=== PATIENT | female | born 1955 | race African-American/Black ===

== ENCOUNTER 2018-02-01 11:40 | Emergency (ER) | payer OTHER ==
[2018-02-01 12:03] VITALS: TEMP 97.8; BMI 31.4
--- NOTE | 2018-02-01 12:41 | PDOC ---
History of Present Illness - General Chief Complaint: Back Pain Stated Complaint: BACK PAIN Time Seen by Provider: 02/01/18 12:40 - History of Present Illness Initial Comments: 02/01/18 13:09 The patient is a 63 year old female with a history of HTN, HLD, DM, Bipolar, Anxiety, Chronic Back Pain, Abdominal Hernia who presents for evaluation of back pain. The patient reports lower back pain with radiation down her right leg similar to her normal chronic back pain, but states it has been getting increasingly worse. She states that she takes percocet and flexiril for pain management, however notes that her insurance has not been able to cover her prescription so she has been unable to fill her prescription. She states that she ran out of her meds 4 days ago with worsening symptoms since then. She otherwise denies fevers, chills, SOB, chest pain, nausea, vomiting, abdominal pain, incontinence, weakness, or changes with urination or bowel movements. Past History - Past Medical History Allergies/Adverse Reactions: Allergies Allergy/AdvReac Type Severity Reaction Status Date / Time divalproex sodium AdvReac Mild Verified 02/01/18 12:06 [From [facility]] Home Medications: Ambulatory Orders Cyclobenzaprine HCl [Flexeril -] 10 mg PO HS PRN #30 tablet 05/22/17 Oxycodone HCl/Acetaminophen [Percocet 10-325 mg Tablet] 1 each PO TID PRN #80 tablet MDD 3 05/22/17 Mirtazapine [Remeron -] 45 mg PO DAILY #30 tab 07/20/17 Valacyclovir HCl [Valtrex -] 500 mg PO BID PRN #10 tab 07/26/17 Cholecalciferol (Vitamin D3) [D3-50] 50,000 unit PO WEEKLY #4 capsule 08/24/17 Hydrocortisone 1% Cream [Hytone 1% Cream -] 1 applic TP TID #1 tube 08/24/17 Buspirone HCl [Buspar -] 15 mg PO TID #90 tablet MDD 3 01/18/18 Quetiapine Fumarate [Seroquel -] 25 mg PO HS #30 tablet 01/18/18 Zolpidem Tartrate [Ambien] 10 mg PO HS PRN #15 tablet MDD 1 01/18/18 traZODone HCL [Desyrel -] 100 mg PO HS #60 tablet MDD 2 tabs at night 01/18/18 Acetaminophen [Tylenol -] 1 - 2 mg PO BID #60 tablet 01/26/18 Albuterol 0.083% Nebulizer Lesa [Ventolin 0.083% Nebulizer Soln -] 1 neb NEB Q6H PRN #100 vial 01/30/18 Albuterol Sulfate Inhaler - [Ventolin HFA Inhaler -] 2 inh PO Q6H #1 inh Aspirin [Aspirin EC] 1 tab PO DAILY #30 tablet. 01/30/18 Atorvastatin Ca [Lipitor] 10 mg PO HS #30 tablet 01/30/18 Bisacodyl [Bisacodyl -] 3 tab PO DAILY #90 tablet. 01/30/18 Docusate Sodium [Colace -] 1 cap PO BID PRN #60 cap 01/30/18 Dolutegravir Sodium [Tivicay] 1 tab PO DAILY #30 tablet 01/30/18 Emtricitab/Rilpiviri/Tenof Ala [Odefsey Tablet] 1 tab PO DAILY #30 tablet Gabapentin [Neurontin -] 300 mg PO Q8H #90 tablet 01/30/18 Hydrochlorothiazide [Hctz -] 25 mg PO DAILY #30 tablet 01/30/18 Lisinopril [Zestril] 40 tab PO DAILY #30 tablet 01/30/18 Metformin HCl [Glucophage] 500 mg PO BIDAC #60 tablet 01/30/18 Sublimity-3 Fatty Acids [Sublimity-3] 1,000 mg PO BID #60 capsule 01/30/18 Sitagliptin Phosphate [Januvia] 100 mg PO DAILY #30 tablet 01/30/18 Anemia: No Asthma: Yes Cancer: No Cardiac Disorders: No CVA: No COPD: No CHF: No Dementia: No Diabetes: Yes GI Disorders: No Disorders: No HTN: Yes Hypercholesterolemia: No Liver Disease: Yes (HEPATITIS C fully treated) Psychiatric Problems: Yes (BIPOLAR, ANXIETY.) Seizures: No Thyroid Disease: No - Surgical History Abdominal Surgery: Yes (UMBILICAL HERNIA) Appendectomy: No Cardiac Surgery: No Cholecystectomy: No Lung Surgery: No Neurologic Surgery: No Orthopedic Surgery: Yes (lumbar decompression 2013) - Suicide/Smoking/Psychosocial Hx Smoking History: Never smoked Have you smoked in the past 12 months: No Number of Cigarettes Smoked Daily: 6 If you are a former smoker, when did you quit?: Approximately 10 days ago. Cigars Per Day: 0 Information on smoking cessation initiated: No 'Breaking Loose' booklet given: 02/26/14 Hx Alcohol Use: No Drug/Substance Use Hx: No Substance Use Type: Alcohol, Marijuana Hx Substance Use Treatment: Yes (rehab) Review of Systems - Review of Systems Comments:: 02/01/18 13:35 Constitutional: No fevers, chills, fatigue, malaise HEENT: No Rhinorrhea, nasal congestion, visual changes Cardiovascular: No chest pain, syncope, palpitations, lightheadedness Respiratory: No Cough, SOB, Hemoptysis, Gastrointestinal: No Abdominal pain, Nausea, Vomiting, Constipation, Diarrhea, Melena Genitourinary: No Dysuria, Frequency, Urgency, Hesitancy, Hematuria, Flank pain Musculoskeletal: Back pain. Skin: No rashes, itching, bruising, pallor Neurologic: No Headache, Dizziness, Numbness, Weakness, or Tingling Psychiatric: No Hallucinations. No SI or HI *Physical Exam - Vital Signs Last Vital Signs Temp Pulse Resp BP Pulse Ox 97.8 F 100 H 16 157/110 H 100 02/01/18 11:44 02/01/18 11:44 02/01/18 11:44 02/01/18 11:44 02/01/18 11:44 - Physical Exam Comments: 02/01/18 13:36 General Appearance: Nourished. No Apparent Distress HEENT: No Pharyngeal Erythema, Tonsillar Exudate, Tonsillar Erythema Neck: No Cervical Lymphadenopathy Respiratory/Chest: Lungs Clear, Normal Breath Sounds. No Crackles, Rales, Rhonchi, Wheezing Cardiovascular: Regular Rhythm, Regular Rate. No Murmur, Gallops, Rubs Gastrointestinal/Abdominal: Normal Bowel Sounds, Soft. Large reducible abdominal hernia noted. No Guarding, Rebound, Tenderness Musculoskeletal: Paraspinal tenderness to palpation. No CVA Tenderness Extremity: Normal Capillary Refill Integumentary: Normal Color, Dry, Warm Neurologic: Fully Oriented, Alert, Normal Mood/Affect, Normal Response, 5/5 strength bilaterally Medical Decision Making - Medical Decision Making 02/01/18 13:38 The patient is a 63 year old female with a history of HTN, HLD, DM, Bipolar, Anxiety, Chronic Back Pain, Abdominal Hernia who presents for evaluation of back pain. Given the patient's history and physical exam, it is likely the patient's symptoms are an exacerbation of her chronic back pain. She has no red flag signs on history or physical. We will treat the patient with lidocaine patch, robaxin, toradol and 1 percocet. We will continue to monitor and reassess while here in the ED. 02/01/18 14:57 Patient reports improvement in her symptoms. The patient talked to her home social work and has arranged for her home medication. We are comfortable discharging the patient home with primary care provider follow up. We discussed the plan and return precautions with the patient who voiced understanding and is agreeable with the plan. *DC/Admit/Observation/Transfer Diagnosis at time of Disposition: Lower back pain Qualifiers: Chronicity: acute Back pain laterality: unspecified Sciatica presence: with sciatica Sciatica laterality: sciatica of right side Qualified Code(s): M54.41 - Lumbago with sciatica, right side - Discharge Dispostion Disposition: HOME Condition at time of disposition: Stable Decision to Admit order: No - Referrals Referrals: [facility] [Primary Care Provider] - - Patient Instructions Printed Discharge Instructions: DI for Low Back Pain Additional Instructions: Please return to the ER if you experience concerning or worsening symptoms including worsening difficulty breathing, weakness, or chest pain. ]Please call to schedule a follow up appointment with your pain management within 2-3 days to discuss your ER visit and further management of your symptoms. - Post Discharge Activity
--- NOTE | 2018-02-01 12:47 | PDOC ---
Attending Attestation - HPI HPI: 02/01/18 14:03 Patient is a 63 year old female with a significant past medical history of HTN, HLD, DM, Bipolar, Anxiety, Chronic Back Pain, Abdominal Hernia ,who presents to the ED with complaints of back pain that began earlier today. Patient reports experiencing lower back pain that she states radiates down her right leg that she states has gradually increased over time, prompting her to come into the ED for further evaluation. She reports getting lumbar surgery and was prescribed percocet by her doctor and was told it would be available at her pharmacy on the 25 of january. Patient reports contacting her pharmacy and was told it could not be filled due to her insurance. She reports taking no other medication for her pain. Denies chest pain, Sob. Denies trauma to affected areas. Denies nausea, vomiting , Denies contact with sick individuals, out of state travelling. Denies any other symptoms. Allergies: Divalproex sodium. Social history: No smoking. No alcohol. No illicit drugs. Surgical history: Umbilical hernia, Lumbar decompression 2013 PMD: Dr. Reilly - Physicial Exam PE: 02/01/18 14:03 Vitals: Triage Vital signs reviewed General Appearance: no acute distress, well nourished well developed Head: Atraumatic Eyes: Pupils equal reactive round, extraocular movement intact Ears: TMs normal bilaterally Nose: Nares patent bilaterally; no nasal congestion Throat: Posterior oropharynx without erythema, mucous membranes moist Neck: Supple; No Nuchal rigidity Chest Wall: Nontender Cardiac: Regular rate and rhythm, no murmurs, no rubs, no gallops Lungs: Clear to auscultation bilateral, good air movement bilaterally Abdomen: Soft, non distended, normal bowel sounds, non tender to palpation Genitourinary: Rectal: Exam deferred Extremities: +Slight pain to lower back with straight leg raise. Full range of motion to all extremities, no cyanosis, clubbing, or edema Skin: Warm and dry, no rashes or lesions, no rash, no petechiae Neuro: AOX3; Cranial Nerves 2-12 grossly intact, Strength intact to all extremities, Sensation intact to all extremities, gait normal Psych: Normal mood, normal affect <Dayo Gil - Last Filed: 02/01/18 14:03> - Resident Resident Name: Shawn Sanchez - ED Attending Attestation I have performed the following: I have examined & evaluated the patient, The case was reviewed & discussed with the resident, I agree w/resident's findings & plan, Exceptions are as noted - Medical Decision Making 02/01/18 16:03 63 years old with chronic sciatica unable to fill her pain management pain medication secondary to insurance issues Here in the emergency department her pain is treated with 1 Percocet lidocaine patch as well as Toradol Her pain is currently improved. She has been in touch with her social media strategist and is in the process of remedying her insurance situation She'll follow-up with her pain management doctor this week. Findings, the need for follow-up and strict return instructions discussed patient. <Maxi Grover - Last Filed: 02/01/18 16:03>
[2018-02-01] MEDS ORDERED: KETOROLAC TROMETHAMINE 60 MG/2 ML VIAL IM ONE (12:48)
[2018-02-01] MEDS ORDERED: LIDOCAINE 5% TOPICAL PATCH TP ONE (12:48)
[2018-02-01] MEDS ORDERED: METHOCARBAMOL 500 MG TABLET PO ONE (12:54)
[2018-02-01] MEDS ORDERED: KETOROLAC TROMETHAMINE 60 MG/2 ML VIAL ONE (12:55)
[2018-02-01] MEDS ORDERED: METHOCARBAMOL 500 MG TABLET ONE (12:55)
[2018-02-01] MEDS ORDERED: LIDOCAINE 5% TOPICAL PATCH ONE (12:55)
[2018-02-01 16:42] VITALS: BP 135/71; PULSE 82
== END 2018-02-01 15:06 | disposition home or self-care (01) ==
LOC: JER 11:40
PROC: 3E0233Z Introduction of Anti-inflammatory into Muscle, Percutaneous Approach (ICD-10-PCS; principal; 2018-02-01)
DX: M54.41 Lumbago with sciatica, right side (principal); I10 Essential (primary) hypertension; E78.00 Pure hypercholesterolemia, unspecified; E11.9 Type 2 diabetes mellitus without complications; Z79.84 Long term (current) use of oral hypoglycemic drugs; F31.9 Bipolar disorder, unspecified; F41.9 Anxiety disorder, unspecified; Z86.19 Personal history of other infectious and parasitic diseases
CPT/HCPCS: 99282-25

== ENCOUNTER 2018-04-16 14:42 | Emergency (ER) | payer OTHER ==
[2018-04-16 14:58] VITALS: PULSE 110; TEMP 98.3; BMI 32.3
[2018-04-16 15:26] VITALS: BP 163/91
[2018-04-16] MEDS ORDERED: METHOCARBAMOL 500 MG TABLET PO ONE (15:38)
[2018-04-16] MEDS ORDERED: KETOROLAC TROMETHAMINE 60 MG/2 ML VIAL IM ONE (15:38)
[2018-04-16] MEDS ORDERED: LIDOCAINE 5% TOPICAL PATCH TP ONE (15:38)
[2018-04-16] MEDS ORDERED: LIDOCAINE 5% TOPICAL PATCH ONE (15:46)
[2018-04-16] MEDS ORDERED: KETOROLAC TROMETHAMINE 60 MG/2 ML VIAL ONE ×2 (15:46)
--- NOTE | 2018-04-16 15:48 | PDOC ---
History of Present Illness - General Chief Complaint: Back Pain Stated Complaint: LOWER BACK PAIN Time Seen by Provider: 04/16/18 15:15 History Source: Patient Exam Limitations: No Limitations - History of Present Illness Initial Comments: 04/16/18 16:52 Patient is a 63 year female with past medical history of sciatica, lumbar fusion , who presents to ER with low back pain. Patient states she feels like her sciatica is flaring up. She states she's been unable see her pain management doctor is her insurance changed. She states that she was able to find a new pain management doctor will be able to be seen in April however she is having a flare at this time. Denies fevers, chills, trauma, fall, numbness and tingling to the extremities, weakness to the extremities, saddle anesthesia, gait changes, and bladder bowel incontinence. Past History - Travel Traveled outside of the country in the last 30 days: No Close contact w/someone who was outside of country & ill: No - Past Medical History Allergies/Adverse Reactions: Allergies Allergy/AdvReac Type Severity Reaction Status Date / Time divalproex sodium AdvReac Mild Verified 04/16/18 14:52 [From Depakote] Home Medications: Ambulatory Orders Valacyclovir HCl [Valtrex -] 500 mg PO BID PRN #10 tab 07/26/17 Cholecalciferol (Vitamin D3) [D3-50] 50,000 unit PO WEEKLY #4 capsule 08/24/17 Hydrocortisone 1% Cream [Hytone 1% Cream -] 1 applic TP TID #1 tube 08/24/17 Acetaminophen [Tylenol .Extra-Strength -] 1 - 2 mg PO BID #60 tablet 01/26/18 Albuterol 0.083% Nebulizer Lesa [Ventolin 0.083% Nebulizer Soln -] 1 neb NEB Q6H PRN #100 vial 01/30/18 Albuterol Sulfate Inhaler - [Ventolin HFA Inhaler -] 2 inh PO Q6H #1 inh Aspirin [Aspirin EC] 1 tab PO DAILY #30 tablet. 01/30/18 Atorvastatin Ca [Lipitor] 10 mg PO HS #30 tablet 01/30/18 Bisacodyl [Bisacodyl -] 3 tab PO DAILY #90 tablet. 01/30/18 Docusate Sodium [Colace -] 1 cap PO BID PRN #60 cap 01/30/18 Dolutegravir Sodium [Tivicay] 1 tab PO DAILY #30 tablet 01/30/18 Emtricitab/Rilpiviri/Tenof Ala [Odefsey Tablet] 1 tab PO DAILY #30 tablet Gabapentin [Neurontin -] 300 mg PO Q8H #90 tablet 01/30/18 Hydrochlorothiazide [Hctz -] 25 mg PO DAILY #30 tablet 01/30/18 Lisinopril [Zestril] 40 tab PO DAILY #30 tablet 01/30/18 Metformin HCl [Glucophage] 500 mg PO BIDAC #60 tablet 01/30/18 Sitagliptin Phosphate [Januvia] 100 mg PO DAILY #30 tablet 01/30/18 Buspirone HCl [Buspar -] 15 mg PO TID #90 tablet 03/22/18 Cyclobenzaprine HCl [Flexeril -] 10 mg PO HS PRN #30 tablet 03/22/18 Mirtazapine [Remeron -] 15 mg PO DAILY #30 tablet 03/22/18 Quetiapine Fumarate [Seroquel -] 25 mg PO HS #30 tablet 03/22/18 Zolpidem Tartrate [Ambien] 10 mg PO HS PRN #15 tablet MDD 1 03/22/18 traZODone HCL [Desyrel -] 100 mg PO HS #60 tablet MDD 2 tabs at night 03/22/18 Diclofenac Potassium 1 tab PO BID PRN #20 tablet MDD 2 03/26/18 Mag Hydrox/Aluminum Hyd/Simeth [Maalox Advanced Suspension] 2 tsp PO BID PRN #1 bottle MDD 4 03/26/18 Methocarbamol [Robaxin -] 500 mg PO BID #14 tablet 04/16/18 Methylprednisolone [Medrol Dose [place]] 4 mg PO ASDIR #21 tablet 04/16/18 Oxycodone HCl/Acetaminophen [Percocet 5-325 mg Tablet] 1 tab PO Q6H #10 tablet MDD 4 04/16/18 Anemia: No Asthma: Yes Cancer: No Cardiac Disorders: No CVA: No COPD: No CHF: No Dementia: No Diabetes: Yes GI Disorders: No Disorders: No HTN: Yes Hypercholesterolemia: No Liver Disease: Yes (HEPATITIS C fully treated) Psychiatric Problems: Yes (BIPOLAR, ANXIETY.) Seizures: No Thyroid Disease: No - Surgical History Abdominal Surgery: Yes (UMBILICAL HERNIA) Appendectomy: No Cardiac Surgery: No Cholecystectomy: No Lung Surgery: No Neurologic Surgery: No Orthopedic Surgery: Yes (lumbar decompression 2013) - Suicide/Smoking/Psychosocial Hx Smoking History: Current every day smoker Have you smoked in the past 12 months: No Number of Cigarettes Smoked Daily: 6 If you are a former smoker, when did you quit?: Approximately 10 days ago. Cigars Per Day: 0 Information on smoking cessation initiated: No 'Breaking Loose' booklet given: 02/26/14 Hx Alcohol Use: No Drug/Substance Use Hx: No Substance Use Type: Alcohol, Marijuana Hx Substance Use Treatment: Yes (rehab) Review of Systems - Review of Systems Able to Perform ROS?: Yes Comments:: 04/16/18 15:48 CONSTITUTIONAL: Absent: fever, chills, diaphoresis, generalized weakness, malaise, loss of appetite GASTROINTESTINAL: Absent: abdominal pain, abdominal distension, nausea, vomiting, diarrhea, constipation, melena, hematochezia GENITOURINARY: Absent: dysuria, frequency, urgency, hesitancy, hematuria, flank pain, genital pain MUSCULOSKELETAL: Present: low back pain radiating to the leg Absent: arthralgia, joint swelling SKIN: Absent: rash, itching, pallor NEUROLOGIC: Absent: headache, focal weakness or paresthesias, dizziness, unsteady gait, seizure, mental status changes, bladder or bowel incontinence PSYCHIATRIC: Absent: anxiety, depression, suicidal or homicidal ideation, hallucinations. Is the patient limited Azeri proficient: No *Physical Exam - Vital Signs Last Vital Signs Temp Pulse Resp BP Pulse Ox 98.3 F 110 H 20 163/91 99 04/16/18 14:57 04/16/18 14:57 04/16/18 14:57 04/16/18 14:57 04/16/18 14:57 - Physical Exam Comments: 04/16/18 15:54 GENERAL: Well developed, well nourished. Awake and alert. No acute distress. MUSCULOSKELETAL TTP of the L paraspinous muscles, L3-L5, with palpable knot consistent with muscle spasm. Positive straight leg raise testing on the left. Normal range of motion at all joints. No bony deformities or tenderness. No midline tenderness. No CVA tenderness. EXTREMITIES: No cyanosis. No clubbing. No edema. No calf tenderness. SKIN: Warm and dry. Normal capillary refill. No rashes. No jaundice. NEUROLOGICAL: Alert, awake, appropriate. Cranial nerves 2-12 intact. No deficits to light touch and temperature in face, upper extremities and lower extremities. No motor deficits in the in face, upper extremities and lower extremities. Normoreflexic in the upper and lower extremities. Normal speech. Toes are down- going bilaterally. Gait is normal without ataxia. PSYCHIATRIC: Cooperative. Good eye contact. Appropriate mood and affect. Moderate Sedation - Procedure Monitoring Vital Signs: Procedure Monitoring Vital Signs Temperature 98.3 F 04/16/18 14:57 Pulse Rate 110 H 04/16/18 14:57 Respiratory Rate 20 04/16/18 14:57 Blood Pressure 163/91 04/16/18 14:57 O2 Sat by Pulse Oximetry (%) 99 04/16/18 14:57 Medical Decision Making - Medical Decision Making 04/16/18 15:55 Pt presents to the ED with a flare of her chronic back pain, no recent trauma -Pt with TTP of the L paraspinous muscles, L3-L5, with palpable knot consistent with muscle spasm. Positive straight leg raise testing on the left. -No trauma, or fever. No saddle anesthesia or bladder/bowel incontinence. No CVA tenderness. -Pt is neurologically intact on exam with no focal findings. -Toradol given with relief of symptoms -DC home. Ortho follow up given for if symptoms do not resolve. -I discussed the physical exam findings, ancillary test results and final diagnoses with the patient. I answered all of the patient's questions. The patient was satisfied with the care received and felt comfortable with the discharge plan and treatment plan. The Patient agrees to follow up with the primary care physician/specialist within 24-72 hours. Return precautions were given. *DC/Admit/Observation/Transfer Diagnosis at time of Disposition: Lower back pain Qualifiers: Chronicity: acute Back pain laterality: left Sciatica presence: with sciatica Sciatica laterality: sciatica of left side Qualified Code(s): M54.42 - Lumbago with sciatica, left side - Discharge Dispostion Disposition: HOME Condition at time of disposition: Stable Decision to Admit order: No - Prescriptions Prescriptions: Methocarbamol [Robaxin -] 500 mg PO BID #14 tablet Methylprednisolone [Medrol Dose [place]] 4 mg PO ASDIR #21 tablet Oxycodone HCl/Acetaminophen [Percocet 5-325 mg Tablet] 1 tab PO Q6H #10 tablet MDD 4 - Referrals Referrals: Nicolle Reilly NP [Primary Care Provider] - Se Bryson MD [Staff Physician] - - Patient Instructions Printed Discharge Instructions: DI for Low Back Pain Additional Instructions: You have low back pain due to a muscle spasm. Please take ibuprofen 800 mg 3 times a day not to exceed 3000 mg a day. You were also prescribed Robaxin. Please take this medication twice a day. Do not drive after taking this medication as it may make you sleepy. You may use warm compresses on your back to help with her symptoms. Please follow-up with your primary care doctor. If your symptoms do not resolve in 3-5 days, follow-up with orthopedics. A referral has been provided for you. Return to the emergency department if you have worsening back pain, bladder or bowel incontinence, numbness and tingling in her legs, changes in the way you walk, or any new or worsening symptoms. - Post Discharge Activity
[2018-04-16] MEDS ORDERED: METHOCARBAMOL 500 MG TABLET ONE (15:49)
[2018-04-16] MEDS ORDERED: LIDOCAINE PATCH REMOVAL MC SCH (22:00)
== END 2018-04-16 16:08 | disposition home or self-care (01) ==
LOC: JERFT 14:42
PROC: 3E0233Z Introduction of Anti-inflammatory into Muscle, Percutaneous Approach (ICD-10-PCS; principal; 2018-04-16)
DX: M54.42 Lumbago with sciatica, left side (principal); M62.830 Muscle spasm of back; I10 Essential (primary) hypertension; E11.9 Type 2 diabetes mellitus without complications; Z79.84 Long term (current) use of oral hypoglycemic drugs; F31.9 Bipolar disorder, unspecified; F41.9 Anxiety disorder, unspecified; Z86.19 Personal history of other infectious and parasitic diseases
CPT/HCPCS: 96372; 99281-25

== ENCOUNTER → 2018-11-20 | Outpatient (CLI) | payer OTHER | LOC: YHH 14:27 ==

== ENCOUNTER 2020-09-17 00:41 | Inpatient (IN) | payer OTHER ==
[2020-09-17] MEDS ORDERED: PROPOFOL 1,000,000 MCG/100 ML VIAL IVPB SCH ×2 (01:00→02:00)
[2020-09-17 01:08] LABS: BASO % 0.9 % (0-2.0); EOS % 2.8 % (0-4.5); HEMATOCRIT 38.5 % (32.4-45.2); HEMOGLOBIN 11.7 GM/dL (10.7-15.3); MCH 23.9 pg (25.7-33.7); MCHC 30.5 g/dl (32.0-36.0); MEAN CELL VOLUME 78.5 fl (80-96); MEAN PLT VOLUME 8.8 fl (7.5-11.1); MONO % 5.7 % (3.8-10.2); NEUT % 42.6 % (42.8-82.8); PLATELET COUNT 305 10^3/uL (134-434)
[2020-09-17 01:16] LABS: ACTIVATED PTT 18.6 SECONDS (25.2-36.5); INR 0.87 (0.83-1.09); PROTHROMBIN TIME (PATIENT) 10.6 SEC (9.7-13.0)
[2020-09-17 01:27] LABS: CALCIUM 8.4 mg/dL (8.5-10.1)
[2020-09-17 01:28] LABS: ALBUMIN 3.3 g/dl (3.4-5.0); BLOOD UREA NITROGEN 9.3 mg/dL (7-18)
[2020-09-17 01:30] LABS: VENOUS O2 SATURATION 90.1 % (70-80); VENOUS PCO2 62.1 mmHg (38-52); VENOUS PH 7.206 (7.310-7.410)
[2020-09-17 01:31] LABS: CREATININE 1.1 mg/dL (0.55-1.3)
[2020-09-17 01:33] LABS: BILIRUBIN,TOTAL 0.3 mg/dL (0.2-1); TOT PROT 7.2 g/dl (6.4-8.2)
[2020-09-17 01:42] LABS: EPI CELLS 2 /uL (0-25.1); HYALINE CASTS 0 /uL (0-3.1); URINE APPEARANCE CLEAR; URINE BACTERIA 3 /uL (0-1359); URINE BILIRUBIN NEGATIVE (NEGATIVE); URINE COLOR YELLOW; URINE GLUCOSE (UA) NEGATIVE (NEGATIVE); URINE KETONE NEGATIVE (NEGATIVE); URINE LEUK ESTERASE NEGATIVE (NEGATIVE); URINE NITRITE NEGATIVE (NEGATIVE); URINE PROTEIN 2+ (NEGATIVE); URINE RBC 4 /uL (0-23.9); URINE UROBILINOGEN 0.2 mg/dL (0.2-1.0); URINE WBC 1 /uL (0-25.8)
[2020-09-17] MEDS ORDERED: MIDAZOLAM IN 0.9 % SOD.CHLORID 1 MG/1 ML PLAST..BAG ONE (01:47)
[2020-09-17] MEDS: MIDAZOLAM IN 0.9 % SOD.CHLORID 100 MG/100 ML PLAST..BAG IVPB SCH ×2 (01:49→19:11)
[2020-09-17] MEDS ORDERED: PIPERACILLIN/TAZOB 4.5 GM 4.5 GM in DEXTROSE 5%-WATER 100 ML IVPB ONE ×2 (02:34→10:00)
[2020-09-17] MEDS ORDERED: VANCOMYCIN 1 GM in D5W (PRE-DOCKED) 1,000 MG/250 ML IVPB ONE (02:34)
[2020-09-17] MEDS ORDERED: SULFAMETHOXAZOLE 80 MG/TRIMETHOPRIM 16 MG/ML VIAL IVPB ONE (02:36)
[2020-09-17] MEDS ORDERED: VANCOMYCIN 1 GRAM (PRE-DOCKED) 1,000 MG/250 ML BAG IVPB ONE (02:41)
[2020-09-17] MEDS ORDERED: PIPERACILLIN/TAZOB 4.5 GM 4.5 GM/100 ML BAG IVPB ONE (02:41)
[2020-09-17] MEDS ORDERED: MIDAZOLAM HCL 2 MG/2 ML SINGLE DOSE VIAL IVPUSH ONE ×2 (03:48→07:13)
[2020-09-17] MEDS ORDERED: FUROSEMIDE 40 MG/4 ML INJECTABLE VIAL IVPUSH ONE (04:12)
[2020-09-17 06:22] LABS: ARTERIAL BLD GAS O2 SATURATION 98.4 mmHg (95-98); ARTERIAL BLOOD GAS BASE EXCESS -1.7 mmol/L (-2-2); ARTERIAL BLOOD GAS pH 7.293 (7.350-7.450)
[2020-09-17 06:27] LABS: ALLENS TEST POSITIVE; VENT MODE V-A/C; VENT RATE 12
[2020-09-17 06:43] LABS: BASO % 0.3 % (0-2.0); EOS % 0.6 % (0-4.5); HEMATOCRIT 34.9 % (32.4-45.2); HEMOGLOBIN 10.7 GM/dL (10.7-15.3); LYMPH % 26.3 % (8-40); MCH 23.9 pg (25.7-33.7); MCHC 30.6 g/dl (32.0-36.0); MEAN CELL VOLUME 78.2 fl (80-96); MONO % 8.9 % (3.8-10.2); NEUT % 63.9 % (42.8-82.8); PLATELET COUNT 252 10^3/uL (134-434); RBC 4.46 M/mm3 (3.60-5.2); RDW 15.9 % (11.6-15.6)
[2020-09-17] MEDS: PROPOFOL 1,000,000 MCG/100 ML VIAL IVPB SCH ×2 (07:04→14:40)
[2020-09-17 07:06] LABS: BLOOD UREA NITROGEN 11.5 mg/dL (7-18); MAGNESIUM 1.8 mg/dL (1.8-2.4)
[2020-09-17 07:09] LABS: CREATININE 1.1 mg/dL (0.55-1.3)
[2020-09-17 07:11] LABS: BILIRUBIN,TOTAL 0.2 mg/dL (0.2-1); TOT PROT 6.1 g/dl (6.4-8.2)
[2020-09-17] MEDS ORDERED: ROCURONIUM BROMIDE 50 MG/5 ML VIAL IV ONE (07:13)
[2020-09-17] MEDS ORDERED: PIPERACILLIN/TAZOB 4.5 GM 4.5 GM in DEXTROSE 5%-WATER 100 ML IVPB SCH ×2 (07:15→09:00)
[2020-09-17] MEDS ORDERED: VECURONIUM BROMIDE 100 MG/100 ML BAG IVPB SCH (07:15)
[2020-09-17] MEDS ORDERED: PIPERACILLIN/TAZOBACTAM 4.5 GM VIAL IVPB ONE (08:51)
[2020-09-17] MEDS ORDERED: DEXTROSE 5%-WATER 100 ML IVPB ONE (08:52)
[2020-09-17] MEDS ORDERED: ENOXAPARIN NA (PORCINE) 40 MG/0.4 ML DISP.SYRIN SQ SCH (10:00)
[2020-09-17] MEDS ORDERED: PNEUMOC 13-VAL CONJ-DIP CRM/PF 0.5 ML DISP.SYRIN IM ONE (10:00)
[2020-09-17] MEDS: MUPIROCIN 2% TOPICAL OINTMENT FOR DECOLONIZATION NS SCH ×2 (10:25→21:21)
[2020-09-17] MEDS ORDERED: VANCOMYCIN/WATER BAGS 1,250 MG/250 ML BAG IVPB ONE (14:00)
[2020-09-17] MEDS: FUROSEMIDE 40 MG/4 ML INJECTABLE VIAL IVPUSH SCH (14:42)
[2020-09-17] MEDS: VANCOMYCIN 1 GRAM (PRE-DOCKED) 1,000 MG/250 ML BAG IVPB SCH (14:42)
[2020-09-17 14:43] LABS: ARTERIAL BLD GAS O2 SATURATION 99.2 mmHg (95-98); ARTERIAL BLOOD GAS PO2 170.2 mmHg (80-100); ARTERIAL BLOOD GAS pH 7.443 (7.350-7.450)
[2020-09-17 14:47] LABS: ALLENS TEST POSITIVE
[2020-09-17 14:48] LABS: VENT MODE A/C; VENT RATE 16
[2020-09-17 14:51] LABS: OPIATES, URI NEGATIVE (NEGATIVE); PHENCYCLIDINE,URINE NEGATIVE (NEGATIVE)
[2020-09-17 14:52] LABS: COCAINE, UR NEGATIVE (NEGATIVE); METHADONE, UR NEGATIVE (NEGATIVE); URINE BARBITURATES NEGATIVE (NEGATIVE)
[2020-09-17 15:09] LABS: URINE AMPHETAMINES NEGATIVE (NEGATIVE); URINE BENZODIAZEPINES POSITIVE (NEGATIVE)
[2020-09-17] MEDS ORDERED: ASPIRIN 81 MG CHEWABLE TABLETS NGT ONE (17:24)
[2020-09-17] MEDS ORDERED: DEXTROSE 5%-WATER - 50 ML IVPB ONE (17:30)
[2020-09-17] MEDS ORDERED: PIPERACILLIN/TAZOBACTAM 3.375 GM VIAL IVPB ONE (17:30)
[2020-09-17] MEDS: PIPERACILLIN/TAZOB 3.375 GM 3.375 GM in DEXTROSE 5%-WATER - 50 ML IVPB SCH (17:32)
[2020-09-17] MEDS ORDERED: HEPARIN NA (PORCINE) 5,000 UNITS/ML 1ML VIAL IVPUSH PRN (17:34)
[2020-09-17] MEDS: HEPARIN - 25,000 UNIT in SODIUM CHLORIDE 495 ML IV SCH (19:30)
[2020-09-17] MEDS: CHLORHEXIDINE GLUCONATE 4% CLEANSER FOR DECOLONIZATION TP SCH (21:21)
[2020-09-18] MEDS ORDERED: DEXTROSE 5%-WATER - 50 ML IVPB ONE ×2 (01:05→10:28)
[2020-09-18] MEDS ORDERED: PIPERACILLIN/TAZOBACTAM 3.375 GM VIAL IVPB ONE ×2 (01:05→10:27)
[2020-09-18] MEDS: PIPERACILLIN/TAZOB 3.375 GM 3.375 GM in DEXTROSE 5%-WATER - 50 ML IVPB SCH ×2 (01:10→10:37)
[2020-09-18] MEDS: VANCOMYCIN 1 GRAM (PRE-DOCKED) 1,000 MG/250 ML BAG IVPB SCH (02:15)
[2020-09-18] MEDS: MIDAZOLAM IN 0.9 % SOD.CHLORID 100 MG/100 ML PLAST..BAG IVPB SCH ×2 (02:16→17:16)
[2020-09-18] MEDS: FUROSEMIDE 40 MG/4 ML INJECTABLE VIAL IVPUSH SCH ×2 (05:50→13:20)
[2020-09-18] MEDS: PROPOFOL 1,000,000 MCG/100 ML VIAL IVPB SCH ×2 (06:00→10:02)
[2020-09-18 06:12] LABS: ARTERIAL BLD GAS O2 SATURATION 97.1 mmHg (95-98); ARTERIAL BLOOD GAS BASE EXCESS 5.8 mmol/L (-2-2); ARTERIAL BLOOD GAS PO2 88.3 mmHg (80-100); ARTERIAL BLOOD GAS pH 7.461 (7.350-7.450)
[2020-09-18 06:35] LABS: ALLENS TEST POSITIVE; VENT MODE A/C; VENT RATE 16
[2020-09-18 07:11] LABS: BASO % 0.5 % (0-2.0); EOS % 1.6 % (0-4.5); HEMOGLOBIN 9.9 GM/dL (10.7-15.3); LYMPH % 22.6 % (8-40); MCH 24.3 pg (25.7-33.7); MCHC 31.8 g/dl (32.0-36.0); MEAN CELL VOLUME 76.3 fl (80-96); MEAN PLT VOLUME 9.3 fl (7.5-11.1); MONO % 8.5 % (3.8-10.2); NEUT % 66.8 % (42.8-82.8); PLATELET COUNT 197 10^3/uL (134-434); RBC 4.07 M/mm3 (3.60-5.2); RDW 15.7 % (11.6-15.6); WHITE BLOOD COUNT 8.6 K/mm3 (4.0-10.0)
[2020-09-18 07:25] LABS: CALCIUM 8.2 mg/dL (8.5-10.1)
[2020-09-18 07:26] LABS: ALBUMIN 2.7 g/dl (3.4-5.0); MAGNESIUM 1.6 mg/dL (1.8-2.4)
[2020-09-18 07:29] LABS: CREATININE 0.7 mg/dL (0.55-1.3); PHOSPHOROUS 2.4 mg/dL (2.5-4.9)
[2020-09-18 07:30] LABS: BILIRUBIN,TOTAL 0.3 mg/dL (0.2-1); TOT PROT 5.8 g/dl (6.4-8.2)
[2020-09-18] MEDS ORDERED: NAPH,MB-DB/K PH,MBDB POWDER PACKET NGT ONE ×2 (07:37→11:58)
[2020-09-18] MEDS ORDERED: MAGNESIUM SULF 50% (8.12 MEQ/2 ML-1 GM VIAL) IVPB ONE (07:38)
[2020-09-18] MEDS: HEPARIN - 25,000 UNIT in SODIUM CHLORIDE 495 ML IV SCH ×2 (07:55→17:14)
[2020-09-18] MEDS ORDERED: HEPARIN NA (PORCINE) 5,000 UNITS/ML 1ML VIAL IVPUSH PRN (08:00)
[2020-09-18] MEDS: MUPIROCIN 2% TOPICAL OINTMENT FOR DECOLONIZATION NS SCH ×2 (10:38→22:05)
[2020-09-18] MEDS ORDERED: POTASSIUM CHLORIDE ORAL LIQUID 20 MEQ/15 ML NGT ONE (12:03)
[2020-09-18 16:08] LABS: HEP B CORE AB, TOT Positive (Negative)
[2020-09-18] MEDS: CHLORHEXIDINE GLUCONATE 4% CLEANSER FOR DECOLONIZATION TP SCH (22:05)
[2020-09-19] MEDS: MIDAZOLAM IN 0.9 % SOD.CHLORID 100 MG/100 ML PLAST..BAG IVPB SCH (05:15)
[2020-09-19] MEDS: PROPOFOL 1,000,000 MCG/100 ML VIAL IVPB SCH (06:10)
[2020-09-19] MEDS: FUROSEMIDE 40 MG/4 ML INJECTABLE VIAL IVPUSH SCH ×2 (06:38→14:00)
[2020-09-19 07:44] LABS: HEMATOCRIT 34.1 % (32.4-45.2); HEMOGLOBIN 10.8 GM/dL (10.7-15.3); MCH 24.5 pg (25.7-33.7); MCHC 31.6 g/dl (32.0-36.0); MEAN CELL VOLUME 77.3 fl (80-96); MEAN PLT VOLUME 9.5 fl (7.5-11.1); PLATELET COUNT 243 10^3/uL (134-434); RBC 4.41 M/mm3 (3.60-5.2); WHITE BLOOD COUNT 9.4 K/mm3 (4.0-10.0)
[2020-09-19 08:11] LABS: CALCIUM 8.5 mg/dL (8.5-10.1)
[2020-09-19 08:12] LABS: BLOOD UREA NITROGEN 10.9 mg/dL (7-18); MAGNESIUM 1.9 mg/dL (1.8-2.4)
[2020-09-19 08:15] LABS: CREATININE 0.9 mg/dL (0.55-1.3); PHOSPHOROUS 3.4 mg/dL (2.5-4.9)
[2020-09-19] MEDS: CLOPIDOGREL BISULFATE 75 MG TABLET (FP) PO SCH (09:49)
[2020-09-19] MEDS: ASPIRIN 81 MG CHEWABLE TABLETS PO SCH (09:49)
[2020-09-19] MEDS: CARVEDILOL 6.25 MG TABLET (FP) PO SCH ×2 (09:49→21:01)
[2020-09-19] MEDS: MUPIROCIN 2% TOPICAL OINTMENT FOR DECOLONIZATION NS SCH ×2 (09:49→21:12)
[2020-09-19] MEDS: LISINOPRIL 10 MG TABLET NGT SCH (13:31)
[2020-09-19] MEDS: DEXMEDETOMIDINE IN 0.9 % NACL 400 MCG/100 ML VIAL IVPB SCH ×2 (13:57→21:08)
[2020-09-19] MEDS: HEPARIN NA (PORCINE) 5,000 UNITS/ML 1ML VIAL SQ SCH ×2 (14:00→21:01)
[2020-09-19] MEDS: CHLORHEXIDINE GLUCONATE 4% CLEANSER FOR DECOLONIZATION TP SCH (21:12)
[2020-09-19] MEDS ORDERED: ATORVASTATIN CA 80 MG TABLET (FP) PO SCH (22:00)
[2020-09-20] MEDS: DEXMEDETOMIDINE IN 0.9 % NACL 400 MCG/100 ML VIAL IVPB SCH (04:20)
[2020-09-20] MEDS: HEPARIN NA (PORCINE) 5,000 UNITS/ML 1ML VIAL SQ SCH ×3 (06:04→21:09)
[2020-09-20] MEDS: FUROSEMIDE 40 MG/4 ML INJECTABLE VIAL IVPUSH SCH ×2 (06:05→13:46)
[2020-09-20 07:00] LABS: HEMATOCRIT 34.4 % (32.4-45.2); HEMOGLOBIN 10.5 GM/dL (10.7-15.3); MCH 23.9 pg (25.7-33.7); MCHC 30.5 g/dl (32.0-36.0); MEAN CELL VOLUME 78.2 fl (80-96); MEAN PLT VOLUME 9.2 fl (7.5-11.1); PLATELET COUNT 200 10^3/uL (134-434); RDW 15.4 % (11.6-15.6); WHITE BLOOD COUNT 8.5 K/mm3 (4.0-10.0)
[2020-09-20 07:20] LABS: CALCIUM 8.6 mg/dL (8.5-10.1)
[2020-09-20 07:23] LABS: CREATININE 0.7 mg/dL (0.55-1.3)
[2020-09-20 07:25] LABS: BILIRUBIN,TOTAL 0.5 mg/dL (0.2-1); TOT PROT 6.7 g/dl (6.4-8.2)
[2020-09-20] MEDS: ASPIRIN 81 MG CHEWABLE TABLETS PO SCH (10:35)
[2020-09-20] MEDS: LISINOPRIL 10 MG TABLET NGT SCH (10:35)
[2020-09-20] MEDS: MUPIROCIN 2% TOPICAL OINTMENT FOR DECOLONIZATION NS SCH (10:35)
[2020-09-20] MEDS: CLOPIDOGREL BISULFATE 75 MG TABLET (FP) PO SCH (10:36)
[2020-09-20] MEDS: CARVEDILOL 6.25 MG TABLET (FP) PO SCH ×2 (10:36→21:08)
[2020-09-20] MEDS: DOLUTEGRAVIR SODIUM 50 MG TABLET (NON-FORMULARY) PO SCH (15:24)
[2020-09-20] MEDS: EMTRICITAB/RILPIVIRI/TENOF ALA (ODEFSEY) TABLET PO SCH (15:24)
[2020-09-20] MEDS ORDERED: hydrALAZINE HCL 20 MG/ML VIAL IM PRN (15:56)
[2020-09-20] MEDS ORDERED: hydrALAZINE HCL 20 MG/ML VIAL ONE (15:58)
[2020-09-20] MEDS ORDERED: hydrALAZINE HCL 20 MG/ML VIAL IVPB PRN (16:03)
[2020-09-20] MEDS: hydrALAZINE HCL 20 MG/ML VIAL IVPUSH PRN (16:07)
[2020-09-20] MEDS: ATORVASTATIN CA 80 MG TABLET (FP) PO SCH (21:08)
[2020-09-20] MEDS ORDERED: MUPIROCIN 2% TOPICAL OINTMENT FOR DECOLONIZATION NS SCH (22:00)
[2020-09-20] MEDS ORDERED: CHLORHEXIDINE GLUCONATE 4% CLEANSER FOR DECOLONIZATION TP SCH (22:00)
[2020-09-21] MEDS ORDERED: MELATONIN 5 MG TABLETS PO ONE (01:43)
[2020-09-21] MEDS: FUROSEMIDE 40 MG/4 ML INJECTABLE VIAL IVPUSH SCH ×2 (05:17→14:40)
[2020-09-21] MEDS: HEPARIN NA (PORCINE) 5,000 UNITS/ML 1ML VIAL SQ SCH ×3 (05:18→21:06)
[2020-09-21 06:55] LABS: HEMATOCRIT 34.3 % (32.4-45.2); HEMOGLOBIN 10.7 GM/dL (10.7-15.3); MCH 24.1 pg (25.7-33.7); MCHC 31.3 g/dl (32.0-36.0); MEAN CELL VOLUME 76.9 fl (80-96); MEAN PLT VOLUME 9.1 fl (7.5-11.1); PLATELET COUNT 242 10^3/uL (134-434); RBC 4.45 M/mm3 (3.60-5.2); RDW 15.6 % (11.6-15.6); WHITE BLOOD COUNT 11.1 K/mm3 (4.0-10.0)
[2020-09-21 07:10] LABS: CALCIUM 9.5 mg/dL (8.5-10.1)
[2020-09-21 07:11] LABS: ALBUMIN 3.3 g/dl (3.4-5.0); BLOOD UREA NITROGEN 16.8 mg/dL (7-18)
[2020-09-21 07:13] LABS: BILIRUBIN,TOTAL 0.4 mg/dL (0.2-1); TOT PROT 7.1 g/dl (6.4-8.2)
[2020-09-21 07:14] LABS: CREATININE 0.9 mg/dL (0.55-1.3)
[2020-09-21] MEDS: ASPIRIN 81 MG CHEWABLE TABLETS PO SCH (09:14)
[2020-09-21] MEDS: CARVEDILOL 6.25 MG TABLET (FP) PO SCH ×2 (09:14→21:05)
[2020-09-21] MEDS: LISINOPRIL 10 MG TABLET NGT SCH (09:14)
[2020-09-21] MEDS: CLOPIDOGREL BISULFATE 75 MG TABLET (FP) PO SCH (09:14)
[2020-09-21] MEDS: DOLUTEGRAVIR SODIUM 50 MG TABLET (NON-FORMULARY) PO SCH (09:15)
[2020-09-21] MEDS: EMTRICITAB/RILPIVIRI/TENOF ALA (ODEFSEY) TABLET PO SCH (09:15)
[2020-09-21] MEDS ORDERED: PATIENT'S OWN MEDICATION (NON-FORMULARY) (Oxycodone Hcl/Acetaminophen [Endocet 10-325 Mg T PO PRN ×2 (10:58→11:36)
[2020-09-21] MEDS ORDERED: amLODIPine BESYLATE 10 MG TABLET (FP) PO ONE (11:00)
[2020-09-21] MEDS ORDERED: PATIENT'S OWN MEDICATION (NON-FORMULARY) (Buspirone Hcl [Buspar -] 15 MG Tablet) PO SCH (11:00)
[2020-09-21] MEDS ORDERED: CARVEDILOL 6.25 MG TABLET (FP) PO ONE (11:25)
[2020-09-21] MEDS: DULoxetine HCL 20 MG CAPSULE.DR PO SCH (11:43)
[2020-09-21] MEDS: ACETAMINOPHEN 325 MG TABLET (FP) PO PRN (16:08)
[2020-09-21] MEDS: oxyCODONE HCL 5 MG TABLET PO PRN (16:10)
[2020-09-21] MEDS: hydrALAZINE HCL 20 MG/ML VIAL IVPUSH PRN (17:48)
[2020-09-21] MEDS ORDERED: MAG HYDROX/AL HYDROX/SIMETH 30 ML UNIT-DOSE CUP PO PRN (18:28)
[2020-09-21] MEDS: traZODone HCL 50 MG TABLET (FP) PO SCH (21:05)
[2020-09-21] MEDS: ATORVASTATIN CA 80 MG TABLET (FP) PO SCH (21:05)
[2020-09-21] MEDS: QUEtiapine FUMARATE 25 MG TABLET PO SCH (21:05)
[2020-09-21] MEDS: MIRTAZAPINE 30 MG TABLET PO SCH (21:05)
[2020-09-22] MEDS: HEPARIN NA (PORCINE) 5,000 UNITS/ML 1ML VIAL SQ SCH ×3 (05:44→21:23)
[2020-09-22 07:30] LABS: HEMATOCRIT 26.8 % (32.4-45.2); HEMOGLOBIN 8.2 GM/dL (10.7-15.3); MCH 23.8 pg (25.7-33.7); MCHC 30.7 g/dl (32.0-36.0); MEAN CELL VOLUME 77.5 fl (80-96); MEAN PLT VOLUME 9.6 fl (7.5-11.1); PLATELET COUNT 234 10^3/uL (134-434); RBC 3.46 M/mm3 (3.60-5.2); RDW 15.6 % (11.6-15.6); WHITE BLOOD COUNT 12.6 K/mm3 (4.0-10.0)
[2020-09-22] MEDS: oxyCODONE HCL 5 MG TABLET PO PRN (07:49)
[2020-09-22] MEDS ORDERED: REGADENOSON 0.4 MG/5 ML PRE-FILLED SYRINGE IVPUSH ONE ×2 (09:53→10:30)
[2020-09-22 12:13] VITALS: BMI 31.3
[2020-09-22] MEDS ORDERED: PT OWN MED DRAWER 7, Y5N ONE (12:48)
[2020-09-22] MEDS: CARVEDILOL 6.25 MG TABLET (FP) PO SCH ×2 (13:11→21:23)
[2020-09-22] MEDS: ASPIRIN 81 MG CHEWABLE TABLETS PO SCH (13:11)
[2020-09-22] MEDS: LISINOPRIL 10 MG TABLET NGT SCH (13:11)
[2020-09-22] MEDS: CLOPIDOGREL BISULFATE 75 MG TABLET (FP) PO SCH (13:11)
[2020-09-22] MEDS: DULoxetine HCL 20 MG CAPSULE.DR PO SCH (13:11)
[2020-09-22] MEDS: QUEtiapine FUMARATE 25 MG TABLET PO SCH ×2 (13:11→21:22)
[2020-09-22] MEDS: SPIRONOLACTONE 25 MG TABLET PO SCH (13:12)
[2020-09-22] MEDS: DOLUTEGRAVIR SODIUM 50 MG TABLET (NON-FORMULARY) PO SCH (13:12)
[2020-09-22] MEDS: EMTRICITAB/RILPIVIRI/TENOF ALA (ODEFSEY) TABLET PO SCH (13:12)
[2020-09-22] MEDS: NICOTINE 21 MG/24 HOURS TOPICAL PATCH TD SCH (14:21)
[2020-09-22] MEDS: traZODone HCL 50 MG TABLET (FP) PO SCH (21:22)
[2020-09-22] MEDS: ATORVASTATIN CA 80 MG TABLET (FP) PO SCH (21:22)
[2020-09-22] MEDS: MIRTAZAPINE 30 MG TABLET PO SCH (21:22)
[2020-09-23] MEDS: oxyCODONE HCL 5 MG TABLET PO PRN ×2 (02:22→21:32)
[2020-09-23] MEDS: ACETAMINOPHEN 325 MG TABLET (FP) PO PRN ×2 (02:23→21:32)
[2020-09-23] MEDS: HEPARIN NA (PORCINE) 5,000 UNITS/ML 1ML VIAL SQ SCH ×2 (06:46→15:34)
[2020-09-23 07:16] LABS: BASO % 0.7 % (0-2.0); EOS % 2.2 % (0-4.5); HEMATOCRIT 24.9 % (32.4-45.2); HEMOGLOBIN 7.8 GM/dL (10.7-15.3); MCH 24.2 pg (25.7-33.7); MCHC 31.3 g/dl (32.0-36.0); MEAN CELL VOLUME 77.3 fl (80-96); MEAN PLT VOLUME 9.1 fl (7.5-11.1); MONO % 6.6 % (3.8-10.2); NEUT % 56.5 % (42.8-82.8); PLATELET COUNT 219 10^3/uL (134-434); RBC 3.22 M/mm3 (3.60-5.2); RDW 15.8 % (11.6-15.6); WHITE BLOOD COUNT 11.2 K/mm3 (4.0-10.0)
[2020-09-23 07:36] LABS: CALCIUM 8.7 mg/dL (8.5-10.1)
[2020-09-23 07:37] LABS: ALBUMIN 3.2 g/dl (3.4-5.0); MAGNESIUM 2.4 mg/dL (1.8-2.4)
[2020-09-23 07:40] LABS: CREATININE 1.9 mg/dL (0.55-1.3)
[2020-09-23 07:42] LABS: BILIRUBIN,TOTAL 0.4 mg/dL (0.2-1); TOT PROT 6.6 g/dl (6.4-8.2)
[2020-09-23 07:47] LABS: BLOOD UREA NITROGEN 63.2 mg/dL (7-18)
[2020-09-23] MEDS ORDERED: PT OWN MED DRAWER 7, Y5N ONE ×2 (10:00→16:22)
[2020-09-23] MEDS: SPIRONOLACTONE 25 MG TABLET PO SCH (10:24)
[2020-09-23] MEDS: DULoxetine HCL 20 MG CAPSULE.DR PO SCH (10:24)
[2020-09-23] MEDS: QUEtiapine FUMARATE 25 MG TABLET PO SCH ×2 (10:24→21:32)
[2020-09-23] MEDS: LISINOPRIL 10 MG TABLET NGT SCH (10:24)
[2020-09-23] MEDS: ASPIRIN 81 MG CHEWABLE TABLETS PO SCH (10:24)
[2020-09-23] MEDS: CLOPIDOGREL BISULFATE 75 MG TABLET (FP) PO SCH (10:24)
[2020-09-23] MEDS: CARVEDILOL 6.25 MG TABLET (FP) PO SCH ×2 (10:24→21:32)
[2020-09-23] MEDS: NICOTINE 21 MG/24 HOURS TOPICAL PATCH TD SCH (10:24)
[2020-09-23] MEDS: EMTRICITAB/RILPIVIRI/TENOF ALA (ODEFSEY) TABLET PO SCH (11:29)
[2020-09-23] MEDS: DOLUTEGRAVIR SODIUM 50 MG TABLET (NON-FORMULARY) PO SCH (11:29)
[2020-09-23 11:59] LABS: BASO % 0.9 % (0-2.0); EOS % 3.1 % (0-4.5); HEMATOCRIT 23.8 % (32.4-45.2); HEMOGLOBIN 7.5 GM/dL (10.7-15.3); LYMPH % 32.8 % (8-40); MCH 24.1 pg (25.7-33.7); MCHC 31.4 g/dl (32.0-36.0); MEAN CELL VOLUME 76.6 fl (80-96); MEAN PLT VOLUME 8.8 fl (7.5-11.1); NEUT % 55.2 % (42.8-82.8); PLATELET COUNT 205 10^3/uL (134-434); RBC 3.11 M/mm3 (3.60-5.2); RDW 15.6 % (11.6-15.6)
[2020-09-23 12:21] LABS: BLOOD UREA NITROGEN 63.8 mg/dL (7-18); CALCIUM 8.6 mg/dL (8.5-10.1)
[2020-09-23 12:24] LABS: CREATININE 1.7 mg/dL (0.55-1.3)
[2020-09-23 12:26] LABS: BILIRUBIN,TOTAL 0.3 mg/dL (0.2-1); TOT PROT 6.4 g/dl (6.4-8.2)
[2020-09-23] MEDS ORDERED: LISINOPRIL 10 MG TABLET PO SCH (14:17)
[2020-09-23] MEDS ORDERED: SODIUM CHLORIDE 1,000 ML IV SCH (14:30)
[2020-09-23] MEDS ORDERED: PANTOPRAZOLE 40 MG TABLET PO SCH (14:30)
[2020-09-23] MEDS ORDERED: POTASSIUM CHLORIDE TABS 20 MEQ TABLET.ER (FP) PO ONE (14:45)
[2020-09-23] MEDS: PANTOPRAZOLE SODIUM 80 MG in SODIUM CHLORIDE 100 ML IVPB SCH (17:43)
[2020-09-23 20:59] LABS: PH,URINE 5.5 (5.0-8.0); URINE APPEARANCE CLEAR; URINE BILIRUBIN NEGATIVE (NEGATIVE); URINE COLOR YELLOW; URINE GLUCOSE (UA) NEGATIVE (NEGATIVE); URINE KETONE NEGATIVE (NEGATIVE); URINE LEUK ESTERASE TRACE (NEGATIVE); URINE NITRITE NEGATIVE (NEGATIVE); URINE PROTEIN NEGATIVE (NEGATIVE); URINE UROBILINOGEN 0.2 mg/dL (0.2-1.0)
[2020-09-23] MEDS: traZODone HCL 50 MG TABLET (FP) PO SCH (21:32)
[2020-09-23] MEDS: MIRTAZAPINE 30 MG TABLET PO SCH (21:32)
[2020-09-23] MEDS: ATORVASTATIN CA 80 MG TABLET (FP) PO SCH (21:32)
[2020-09-23] MEDS: METHYL SALICYLATE/MENTHOL OINT 30 GM TUBE TP SCH (21:43)
[2020-09-24] MEDS: PANTOPRAZOLE SODIUM 80 MG in SODIUM CHLORIDE 100 ML IVPB SCH ×2 (02:03→14:06)
[2020-09-24 07:14] LABS: BASO % 0.5 % (0-2.0); EOS % 3.1 % (0-4.5); HEMATOCRIT 25.4 % (32.4-45.2); HEMOGLOBIN 8.2 GM/dL (10.7-15.3); LYMPH % 32.5 % (8-40); MCH 24.8 pg (25.7-33.7); MCHC 32.3 g/dl (32.0-36.0); MEAN CELL VOLUME 76.7 fl (80-96); MEAN PLT VOLUME 8.9 fl (7.5-11.1); MONO % 8.2 % (3.8-10.2); NEUT % 55.7 % (42.8-82.8); PLATELET COUNT 207 10^3/uL (134-434); RBC 3.31 M/mm3 (3.60-5.2); RDW 15.4 % (11.6-15.6); WHITE BLOOD COUNT 8.9 K/mm3 (4.0-10.0)
[2020-09-24 07:21] LABS: INR 1.01 (0.83-1.09); PROTHROMBIN TIME (PATIENT) 12.4 SEC (9.7-13.0)
[2020-09-24 07:36] LABS: CHLORIDE 111 mmol/L (98-107); SODIUM 143 mmol/L (136-145)
[2020-09-24 07:46] LABS: ANION GAP 8 MMOL/L (8-16); CALCIUM 8.4 mg/dL (8.5-10.1); CO2 24 mmol/L (21-32); CREATININE 1.2 mg/dL (0.55-1.3); GLUCOSE,RANDOM 168 mg/dL (74-106); MAGNESIUM 2.3 mg/dL (1.8-2.4); SGOT/AST 22 U/L (15-37)
[2020-09-24 07:48] LABS: BILIRUBIN,TOTAL 0.3 mg/dL (0.2-1); TOT PROT 6.4 g/dl (6.4-8.2)
[2020-09-24 07:49] LABS: ALK PHOS 70 U/L (45-117)
[2020-09-24 07:51] LABS: SGPT/ALT 23 U/L (13-61)
[2020-09-24 07:53] LABS: IRON SERUM 62 ug/dL (50-175)
[2020-09-24 07:54] LABS: TOTAL IRON BINDING CAPACITY 429 ug/dL (250-450)
[2020-09-24 07:57] LABS: BLOOD UREA NITROGEN 32.6 mg/dL (7-18)
[2020-09-24] MEDS ORDERED: SODIUM CHLORIDE 0.45% 1,000 ML IV SCH (08:00)
[2020-09-24] MEDS: NICOTINE 21 MG/24 HOURS TOPICAL PATCH TD SCH (09:07)
[2020-09-24] MEDS: CARVEDILOL 6.25 MG TABLET (FP) PO SCH ×2 (09:07→21:04)
[2020-09-24] MEDS: ASPIRIN 81 MG CHEWABLE TABLETS PO SCH (09:07)
[2020-09-24] MEDS: DULoxetine HCL 20 MG CAPSULE.DR PO SCH (09:08)
[2020-09-24] MEDS: METHYL SALICYLATE/MENTHOL OINT 30 GM TUBE TP SCH ×2 (09:08→21:04)
[2020-09-24] MEDS: QUEtiapine FUMARATE 25 MG TABLET PO SCH ×2 (09:08→21:04)
[2020-09-24] MEDS: DOLUTEGRAVIR SODIUM 50 MG TABLET (NON-FORMULARY) PO SCH (09:09)
[2020-09-24] MEDS: oxyCODONE HCL 5 MG TABLET PO PRN (14:07)
[2020-09-24] MEDS: ACETAMINOPHEN 325 MG TABLET (FP) PO PRN (14:08)
[2020-09-24 18:26] LABS: URINE RBC 0-3 /uL (0-23.9)
[2020-09-24 18:27] LABS: EPI CELLS 0-3 /uL (0-25.1); HYALINE CASTS 0 /uL (0-3.1); URINE WBC 0-5 /uL (0-25.8)
[2020-09-24 18:28] LABS: URINE BACTERIA FEW /uL (0-1359)
[2020-09-24 18:49] LABS: BASO % 0.6 % (0-2.0); EOS % 3.4 % (0-4.5); HEMATOCRIT 25.6 % (32.4-45.2); HEMOGLOBIN 8.1 GM/dL (10.7-15.3); LYMPH % 38.2 % (8-40); MCH 24.3 pg (25.7-33.7); MCHC 31.5 g/dl (32.0-36.0); MEAN CELL VOLUME 77.3 fl (80-96); MEAN PLT VOLUME 8.9 fl (7.5-11.1); MONO % 7.7 % (3.8-10.2); NEUT % 50.1 % (42.8-82.8); PLATELET COUNT 212 10^3/uL (134-434); RBC 3.32 M/mm3 (3.60-5.2); RDW 15.4 % (11.6-15.6); WHITE BLOOD COUNT 10.5 K/mm3 (4.0-10.0)
[2020-09-24] MEDS: valACYclovir HCL 500 MG TABLET (FP) PO SCH (21:04)
[2020-09-24] MEDS: ATORVASTATIN CA 80 MG TABLET (FP) PO SCH (21:04)
[2020-09-24] MEDS: traZODone HCL 50 MG TABLET (FP) PO SCH (21:04)
[2020-09-24] MEDS: MIRTAZAPINE 30 MG TABLET PO SCH (21:04)
[2020-09-25] MEDS: PANTOPRAZOLE SODIUM 80 MG in SODIUM CHLORIDE 100 ML IVPB SCH ×3 (01:23→11:00)
[2020-09-25 07:27] LABS: BASO % 0.3 % (0-2.0); EOS % 3.3 % (0-4.5); HEMATOCRIT 25.7 % (32.4-45.2); LYMPH % 35.1 % (8-40); MCH 24.5 pg (25.7-33.7); MCHC 31.3 g/dl (32.0-36.0); MEAN CELL VOLUME 78.3 fl (80-96); MEAN PLT VOLUME 8.9 fl (7.5-11.1); MONO % 9.2 % (3.8-10.2); NEUT % 52.1 % (42.8-82.8); PLATELET COUNT 218 10^3/uL (134-434); RBC 3.28 M/mm3 (3.60-5.2); RDW 15.4 % (11.6-15.6); WHITE BLOOD COUNT 9.2 K/mm3 (4.0-10.0)
[2020-09-25 07:51] LABS: BLOOD UREA NITROGEN 12.5 mg/dL (7-18); CALCIUM 8.7 mg/dL (8.5-10.1)
[2020-09-25 07:52] LABS: MAGNESIUM 2.1 mg/dL (1.8-2.4)
[2020-09-25 07:55] LABS: CREATININE 0.9 mg/dL (0.55-1.3)
[2020-09-25 07:56] LABS: TOT PROT 6.3 g/dl (6.4-8.2)
[2020-09-25 07:58] LABS: BILIRUBIN,TOTAL 0.3 mg/dL (0.2-1)
[2020-09-25] MEDS ORDERED: PT OWN MED DRAWER 7, Y5N ONE ×2 (08:36→10:43)
[2020-09-25] MEDS: DOLUTEGRAVIR SODIUM 50 MG TABLET (NON-FORMULARY) PO SCH (09:02)
[2020-09-25] MEDS: NICOTINE 21 MG/24 HOURS TOPICAL PATCH TD SCH (09:02)
[2020-09-25] MEDS: QUEtiapine FUMARATE 25 MG TABLET PO SCH (09:02)
[2020-09-25] MEDS: ASPIRIN 81 MG CHEWABLE TABLETS PO SCH (09:02)
[2020-09-25] MEDS: DULoxetine HCL 20 MG CAPSULE.DR PO SCH (09:03)
[2020-09-25] MEDS: METHYL SALICYLATE/MENTHOL OINT 30 GM TUBE TP SCH (09:03)
[2020-09-25] MEDS: valACYclovir HCL 500 MG TABLET (FP) PO SCH (09:03)
[2020-09-25] MEDS: CARVEDILOL 6.25 MG TABLET (FP) PO SCH (09:03)
[2020-09-25 10:52] VITALS: BP 138/66; PULSE 99; TEMP 98.1
== END 2020-09-25 12:27 | disposition short-term general hospital (02) | DRG 190 ==
LOC: JER 00:41 → JICU 02:41 → J4S 09-20 16:37
PROVIDERS: ADMIT Internal Medicine Pulmonary Disease; ATTEND Nurse Practitioner Family
PROC: 5A1945Z Respiratory Ventilation, 24-96 Consecutive Hours (ICD-10-PCS; principal; 2020-09-17)
PROC: 30233N1 Transfusion of Nonautologous Red Blood Cells into Peripheral Vein, Percutaneous Approach (ICD-10-PCS; 2020-09-23)
DX: I21.4 Non-ST elevation (NSTEMI) myocardial infarction (principal); J96.02 Acute respiratory failure with hypercapnia; I11.0 Hypertensive heart disease with heart failure; J96.01 Acute respiratory failure with hypoxia; I50.33 Acute on chronic diastolic (congestive) heart failure; N17.9 Acute kidney failure, unspecified; E11.9 Type 2 diabetes mellitus without complications; F31.9 Bipolar disorder, unspecified; F41.9 Anxiety disorder, unspecified; B19.20 Unspecified viral hepatitis C without hepatic coma; I24.8 Other forms of acute ischemic heart disease; K92.2 Gastrointestinal hemorrhage, unspecified; E87.6 Hypokalemia; I25.10 Atherosclerotic heart disease of native coronary artery without angina pectoris; D62 Acute posthemorrhagic anemia; Z21 Asymptomatic human immunodeficiency virus [HIV] infection status; E66.9 Obesity, unspecified; Z68.31 Body mass index [BMI] 31.0-31.9, adult
CPT/HCPCS: 31500; 36415; 36430; 36600; 71045-TC-FY; 76775-TC; 78452-TC; 80048; 80053; 80307; 81003; 82272; 82436; 82570; 82728; 82803; 82962; 83540; 83550; 83605; 83735; 83880; 84100; 84133; 84300; 84484; 85025; 85027; 85610; 85730; 86140; 86359; 86360; 86704; 86706; 86707; 86708; 86709; 86803; 86850; 86900; 86901; 86922; 87040; 87070; 87086; 87205; 87340; 87517; 87536; 87899; 90670; 93005; 93010; 93017; 93306-TC; 94002; 94010; 94761; 97116-GP; 97161-GP; 99291; A9502; C9803; J1644; J2785; P9058; U0003; U0005

== ENCOUNTER 2020-10-14 10:35 | Inpatient (IN) | payer OTHER ==
[2020-10-14 11:54] LABS: BASO % 0.3 % (0-2.0); EOS % 1.8 % (0-4.5); HEMATOCRIT 20.8 % (32.4-45.2); LYMPH % 16.8 % (8-40); MCH 23.8 pg (25.7-33.7); MCHC 31.1 g/dl (32.0-36.0); MEAN CELL VOLUME 76.6 fl (80-96); MEAN PLT VOLUME 8.5 fl (7.5-11.1); MONO % 7.1 % (3.8-10.2); PLATELET COUNT 319 10^3/uL (134-434); RBC 2.72 M/mm3 (3.60-5.2); RDW 16.4 % (11.6-15.6); WHITE BLOOD COUNT 11.3 K/mm3 (4.0-10.0)
[2020-10-14 11:57] LABS: HEMOGLOBIN 6.5 GM/dL (10.7-15.3)
[2020-10-14 12:01] LABS: INR 0.98 (0.83-1.09); PROTHROMBIN TIME (PATIENT) 12.1 SEC (9.7-13.0)
[2020-10-14 12:14] LABS: CHLORIDE 107 mmol/L (98-107); SODIUM 139 mmol/L (136-145)
[2020-10-14 12:17] LABS: ALBUMIN 3.2 g/dl (3.4-5.0); ANION GAP 9 MMOL/L (8-16); BLOOD UREA NITROGEN 18.3 mg/dL (7-18); CALCIUM 8.5 mg/dL (8.5-10.1); CO2 23 mmol/L (21-32); GLUCOSE,RANDOM 120 mg/dL (74-106)
[2020-10-14 12:20] LABS: CREATININE 1.3 mg/dL (0.55-1.3); SGOT/AST 32 U/L (15-37); SGPT/ALT 20 U/L (13-61)
[2020-10-14 12:22] LABS: BILIRUBIN,TOTAL 0.1 mg/dL (0.2-1); TOT PROT 6.7 g/dl (6.4-8.2)
[2020-10-14 12:23] LABS: ALK PHOS 78 U/L (45-117)
[2020-10-14] MEDS ORDERED: FUROSEMIDE 40 MG/4 ML INJECTABLE VIAL IVPUSH ONE ×4 (12:23→23:30)
[2020-10-14] MEDS ORDERED: FUROSEMIDE 40 MG/4 ML INJECTABLE VIAL ONE ×2 (12:25→23:02)
[2020-10-14] MEDS ORDERED: PANTOPRAZOLE SODIUM 40 MG VIAL IVPUSH ONE (16:42)
[2020-10-14] MEDS ORDERED: PANTOPRAZOLE SODIUM 80 MG in SODIUM CHLORIDE 100 ML IVPB SCH (17:15)
[2020-10-14] MEDS ORDERED: PANTOPRAZOLE SODIUM 40 MG VIAL ONE (17:37)
[2020-10-14] MEDS: PANTOPRAZOLE SODIUM 160 MG in SODIUM CHLORIDE 290 ML IVPB SCH (20:00)
[2020-10-14 21:59] LABS: BASO % 0.6 % (0-2.0); EOS % 2.2 % (0-4.5); HEMATOCRIT 23.7 % (32.4-45.2); HEMOGLOBIN 7.5 GM/dL (10.7-15.3); LYMPH % 20.5 % (8-40); MCH 24.9 pg (25.7-33.7); MCHC 31.7 g/dl (32.0-36.0); MEAN CELL VOLUME 78.6 fl (80-96); MEAN PLT VOLUME 8.2 fl (7.5-11.1); MONO % 7.5 % (3.8-10.2); NEUT % 69.2 % (42.8-82.8); PLATELET COUNT 284 10^3/uL (134-434); RBC 3.01 M/mm3 (3.60-5.2); RDW 17.2 % (11.6-15.6); WHITE BLOOD COUNT 11.1 K/mm3 (4.0-10.0)
[2020-10-14] MEDS: CHLORHEXIDINE GLUCONATE 4% CLEANSER FOR DECOLONIZATION TP SCH (22:02)
[2020-10-14] MEDS: MUPIROCIN 2% TOPICAL OINTMENT FOR DECOLONIZATION NS SCH (22:02)
[2020-10-14] MEDS ORDERED: ALBUTEROL SO4 2.5/IPRATROPIUM 0.5 INH SOL 3 ML VIAL.NEB. NEB ONE (22:14)
[2020-10-14] MEDS ORDERED: LORazepam 2 MG/ML SDV VIAL ONE (22:21)
[2020-10-14] MEDS ORDERED: LORazepam 2 MG/ML SDV VIAL IVPUSH ONE (22:21)
[2020-10-14] MEDS ORDERED: methylPREDNISolone NA SUCC 40 MG/1 ML VIAL IVPUSH ONE (22:37)
[2020-10-14] MEDS ORDERED: HYDROCORTISONE SOD SUCCINATE 100 MG/2 ML VIAL ONE (22:41)
[2020-10-14 22:54] LABS: ARTERIAL BLD GAS O2 SATURATION 89.1 % (95-98); ARTERIAL BLOOD GAS BASE EXCESS -6.6 mmol/L (-2-2); ARTERIAL BLOOD GAS PO2 75.3 mmHg (80-100)
[2020-10-14] MEDS ORDERED: NITROGLYCERIN 2% OINTMENT - 1GM PACKET TD ONE (23:01)
[2020-10-14] MEDS ORDERED: METOPROLOL TARTRATE 5 MG/5 ML VIAL IVPUSH ONE ×2 (23:08→23:21)
[2020-10-14] MEDS ORDERED: RAPID SEQUENCE INTUBATION KIT NR ONE (23:15)
[2020-10-14] MEDS ORDERED: PHENYLEPHRINE HCL 10 MG/1 ML SINGLE DOSE VIAL ONE (23:16)
[2020-10-14] MEDS ORDERED: ROCURONIUM BROMIDE 100 MG/10 ML VIAL ONE (23:17)
[2020-10-14] MEDS ORDERED: LIDOCAINE HCL 2% 100 MG/5 ML DISP.SYRIN ONE (23:17)
[2020-10-14] MEDS ORDERED: MIDAZOLAM IN 0.9 % SOD.CHLORID 1 MG/1 ML PLAST..BAG ONE (23:29)
[2020-10-14] MEDS ORDERED: PHENYLEPHRINE NS PREMIX 50,000 MCG/500 ML BAG CVP SCH (23:30)
[2020-10-14] MEDS: MIDAZOLAM IN 0.9 % SOD.CHLORID 100 MG/100 ML PLAST..BAG IVPB SCH (23:35)
[2020-10-14] MEDS ORDERED: METOPROLOL TARTRATE 5 MG/5 ML VIAL ONE (23:40)
[2020-10-15 00:59] LABS: ARTERIAL BLD GAS O2 SATURATION 56.4 % (95-98); ARTERIAL BLOOD GAS BASE EXCESS 0.7 mmol/L (-2-2); ARTERIAL BLOOD GAS pH 7.291 (7.350-7.450)
[2020-10-15 01:08] LABS: VENT MODE A/C; VENT RATE 16
[2020-10-15] MEDS ORDERED: fentaNYL CITRATE 250 MCG/5 ML VIAL ONE (01:09)
[2020-10-15 01:14] LABS: ARTERIAL BLOOD GAS PO2 33.5 mmHg (80-100)
[2020-10-15] MEDS ORDERED: PROPOFOL 1,000,000 MCG/100 ML VIAL IVPB SCH (01:15)
[2020-10-15] MEDS ORDERED: FENTANYL NS IVPB 500 MCG/100 ML BAG IVPB SCH (01:30)
[2020-10-15] MEDS ORDERED: FENTANYL NS IVPB 500 MCG/100 ML BAG IVPB ONE ×2 (01:30→11:43)
[2020-10-15 01:54] LABS: ARTERIAL BLD GAS O2 SATURATION 98.4 % (95-98); ARTERIAL BLOOD GAS BASE EXCESS 2.2 mmol/L (-2-2); ARTERIAL BLOOD GAS PO2 133.4 mmHg (80-100); ARTERIAL BLOOD GAS pH 7.328 (7.350-7.450)
[2020-10-15 01:55] LABS: VENT MODE A/C; VENT RATE 20
[2020-10-15 05:58] LABS: INR 1.01 (0.83-1.09); PROTHROMBIN TIME (PATIENT) 12.4 SEC (9.7-13.0)
[2020-10-15 05:59] LABS: BASO % 0.2 % (0-2.0); EOS % 0.1 % (0-4.5); HEMATOCRIT 23.1 % (32.4-45.2); HEMOGLOBIN 7.4 GM/dL (10.7-15.3); LYMPH % 5.6 % (8-40); MCH 25.1 pg (25.7-33.7); MEAN CELL VOLUME 78.5 fl (80-96); MEAN PLT VOLUME 8.8 fl (7.5-11.1); MONO % 1.3 % (3.8-10.2); NEUT % 92.8 % (42.8-82.8); PLATELET COUNT 351 10^3/uL (134-434); RBC 2.94 M/mm3 (3.60-5.2); RDW 17.3 % (11.6-15.6); WHITE BLOOD COUNT 15.6 K/mm3 (4.0-10.0)
[2020-10-15] MEDS: NITROGLYCERIN 2% OINTMENT - 1GM PACKET TD SCH ×4 (05:59→18:14)
[2020-10-15 06:01] LABS: ACTIVATED PTT 20.3 SECONDS (25.2-36.5)
[2020-10-15 06:12] LABS: CHLORIDE 107 mmol/L (98-107); SODIUM 141 mmol/L (136-145)
[2020-10-15 06:15] LABS: ANION GAP 7 MMOL/L (8-16); CALCIUM 8.2 mg/dL (8.5-10.1); CO2 28 mmol/L (21-32)
[2020-10-15 06:16] LABS: GLUCOSE,RANDOM 151 mg/dL (74-106); MAGNESIUM 1.9 mg/dL (1.8-2.4)
[2020-10-15 06:18] LABS: PHOSPHOROUS 3.5 mg/dL (2.5-4.9)
[2020-10-15 06:19] LABS: CREATININE 1.3 mg/dL (0.55-1.3); SGOT/AST 72 U/L (15-37); SGPT/ALT 23 U/L (13-61)
[2020-10-15 06:20] LABS: BILIRUBIN,TOTAL 0.3 mg/dL (0.2-1); TOT PROT 6.4 g/dl (6.4-8.2)
[2020-10-15 06:21] LABS: ALK PHOS 77 U/L (45-117)
[2020-10-15 06:24] LABS: N-TERMINAL BNP 7962.9 pg/ml (5-125)
[2020-10-15] MEDS: MUPIROCIN 2% TOPICAL OINTMENT FOR DECOLONIZATION NS SCH ×2 (09:19→22:00)
[2020-10-15] MEDS: FUROSEMIDE 40 MG/4 ML INJECTABLE VIAL IVPUSH SCH (09:19)
[2020-10-15] MEDS ORDERED: FUROSEMIDE 40 MG/4 ML INJECTABLE VIAL IVPUSH SCH (10:00)
[2020-10-15 10:13] LABS: ANISOCYTOSIS 1+; MACROCYTOSIS 0; PLATELET ESTIMATE NORMAL; TEAR DROP CELLS 1+
[2020-10-15] MEDS: FENTANYL NS IVPB 500 MCG/100 ML BAG IVPB SCH ×3 (12:17→18:15)
[2020-10-15] MEDS ORDERED: PT OWN MED DRAWER 7, Y5N ONE (18:13)
[2020-10-15] MEDS: PANTOPRAZOLE SODIUM 160 MG in SODIUM CHLORIDE 290 ML IVPB SCH (19:15)
[2020-10-15] MEDS: MIDAZOLAM IN 0.9 % SOD.CHLORID 100 MG/100 ML PLAST..BAG IVPB SCH (21:10)
[2020-10-15] MEDS: CHLORHEXIDINE GLUCONATE 4% CLEANSER FOR DECOLONIZATION TP SCH (22:00)
[2020-10-16 00:52] LABS: BASO % 0.7 % (0-2.0); EOS % 0.2 % (0-4.5); HEMATOCRIT 22.4 % (32.4-45.2); HEMOGLOBIN 7.2 GM/dL (10.7-15.3); LYMPH % 23.1 % (8-40); MCH 25.3 pg (25.7-33.7); MCHC 32.1 g/dl (32.0-36.0); MEAN CELL VOLUME 78.7 fl (80-96); MEAN PLT VOLUME 8.1 fl (7.5-11.1); MONO % 10.8 % (3.8-10.2); NEUT % 65.2 % (42.8-82.8); PLATELET COUNT 229 10^3/uL (134-434); RBC 2.84 M/mm3 (3.60-5.2); RDW 17.4 % (11.6-15.6); WHITE BLOOD COUNT 11.7 K/mm3 (4.0-10.0)
[2020-10-16] MEDS: NITROGLYCERIN 2% OINTMENT - 1GM PACKET TD SCH ×4 (00:59→19:08)
[2020-10-16] MEDS ORDERED: FUROSEMIDE 40 MG/4 ML INJECTABLE VIAL IVPUSH PRN (01:03)
[2020-10-16] MEDS: FENTANYL NS IVPB 500 MCG/100 ML BAG IVPB SCH ×2 (03:00→11:54)
[2020-10-16] MEDS: MIDAZOLAM IN 0.9 % SOD.CHLORID 100 MG/100 ML PLAST..BAG IVPB SCH (06:35)
[2020-10-16 07:04] LABS: BASO % 0.2 % (0-2.0); EOS % 0.6 % (0-4.5); HEMATOCRIT 25.6 % (32.4-45.2); HEMOGLOBIN 8.4 GM/dL (10.7-15.3); LYMPH % 19.7 % (8-40); MCH 26.2 pg (25.7-33.7); MCHC 32.8 g/dl (32.0-36.0); MEAN CELL VOLUME 79.8 fl (80-96); MEAN PLT VOLUME 8.5 fl (7.5-11.1); NEUT % 68.5 % (42.8-82.8); PLATELET COUNT 230 10^3/uL (134-434); RBC 3.21 M/mm3 (3.60-5.2); RDW 17.6 % (11.6-15.6); WHITE BLOOD COUNT 11.8 K/mm3 (4.0-10.0)
[2020-10-16 07:23] LABS: CALCIUM 7.9 mg/dL (8.5-10.1)
[2020-10-16 07:24] LABS: ALBUMIN 2.8 g/dl (3.4-5.0); BLOOD UREA NITROGEN 15.4 mg/dL (7-18); MAGNESIUM 1.7 mg/dL (1.8-2.4)
[2020-10-16 07:27] LABS: PHOSPHOROUS 2.4 mg/dL (2.5-4.9)
[2020-10-16 07:28] LABS: BILIRUBIN,TOTAL 0.4 mg/dL (0.2-1)
[2020-10-16] MEDS ORDERED: MAGNESIUM SULF 50% (8.12 MEQ/2 ML-1 GM VIAL) IVPB ONE (08:01)
[2020-10-16] MEDS ORDERED: POTASSIUM PHOSPHATE 15 MM in SODIUM CHLORIDE 250 ML IVPB ONE (09:15)
[2020-10-16] MEDS: MUPIROCIN 2% TOPICAL OINTMENT FOR DECOLONIZATION NS SCH ×2 (10:09→22:19)
[2020-10-16] MEDS: FUROSEMIDE 40 MG/4 ML INJECTABLE VIAL IVPUSH SCH ×2 (10:10→14:53)
[2020-10-16] MEDS ORDERED: FUROSEMIDE 40 MG/4 ML INJECTABLE VIAL IVPUSH ONE (11:34)
[2020-10-16] MEDS: PANTOPRAZOLE SODIUM 160 MG in SODIUM CHLORIDE 290 ML IVPB SCH (14:34)
[2020-10-16] MEDS ORDERED: ACETAMINOPHEN 1000 MG/100 ML VIAL (NON FORMULARY) IVPB ONE (18:37)
[2020-10-16] MEDS: CHLORHEXIDINE GLUCONATE 4% CLEANSER FOR DECOLONIZATION TP SCH (22:19)
[2020-10-17] MEDS: NITROGLYCERIN 2% OINTMENT - 1GM PACKET TD SCH ×4 (01:06→17:07)
[2020-10-17] MEDS: FUROSEMIDE 40 MG/4 ML INJECTABLE VIAL IVPUSH SCH ×2 (06:38→13:01)
[2020-10-17] MEDS: MIDAZOLAM IN 0.9 % SOD.CHLORID 100 MG/100 ML PLAST..BAG IVPB SCH (06:38)
[2020-10-17 07:33] LABS: BASO % 0.2 % (0-2.0); EOS % 1.9 % (0-4.5); HEMATOCRIT 30.3 % (32.4-45.2); HEMOGLOBIN 9.9 GM/dL (10.7-15.3); MCH 26.3 pg (25.7-33.7); MCHC 32.6 g/dl (32.0-36.0); MEAN CELL VOLUME 80.6 fl (80-96); MEAN PLT VOLUME 8.7 fl (7.5-11.1); MONO % 9.6 % (3.8-10.2); NEUT % 67.3 % (42.8-82.8); PLATELET COUNT 249 10^3/uL (134-434); RBC 3.76 M/mm3 (3.60-5.2); WHITE BLOOD COUNT 12.5 K/mm3 (4.0-10.0)
[2020-10-17 07:39] LABS: INR 1.14 (0.83-1.09)
[2020-10-17 07:56] LABS: ALBUMIN 3.1 g/dl (3.4-5.0); BLOOD UREA NITROGEN 11.4 mg/dL (7-18); MAGNESIUM 1.6 mg/dL (1.8-2.4)
[2020-10-17 07:59] LABS: CREATININE 0.9 mg/dL (0.55-1.3); PHOSPHOROUS 3.7 mg/dL (2.5-4.9)
[2020-10-17 08:01] LABS: BILIRUBIN,TOTAL 0.5 mg/dL (0.2-1); TOT PROT 6.9 g/dl (6.4-8.2)
[2020-10-17 08:07] LABS: CALCIUM 8.6 mg/dL (8.5-10.1)
[2020-10-17] MEDS: PANTOPRAZOLE SODIUM 160 MG in SODIUM CHLORIDE 290 ML IVPB SCH ×2 (08:17→11:08)
[2020-10-17] MEDS ORDERED: MAGNESIUM 1GM/D5W - 1 GM/100 ML IVPB IVPB ONE (09:00)
[2020-10-17] MEDS ORDERED: KCL 10 MEQ IVPB 10 MEQ/100 ML INFUS.BAG IVPB SCH (09:00)
[2020-10-17] MEDS: MUPIROCIN 2% TOPICAL OINTMENT FOR DECOLONIZATION NS SCH (09:00)
[2020-10-17 15:40] VITALS: TEMP 98.6
[2020-10-17] MEDS ORDERED: IRON SUCROSE INJECTION 200 MG in SODIUM CHLORIDE 90 ML IVPB ONE (16:04)
[2020-10-17] MEDS ORDERED: METOPROLOL TARTRATE 5 MG/5 ML VIAL IVPUSH ONE (16:39)
[2020-10-17 22:45] VITALS: BMI 30.9
[2020-10-17 23:49] VITALS: PULSE 103
[2020-10-18 02:25] VITALS: BP 172/98
== END 2020-10-18 02:25 | disposition short-term general hospital (02) | DRG 194 ==
LOC: JER 10:35 → JERBED 14:13 → JICU 19:47
PROVIDERS: ADMIT Internal Medicine; ATTEND Internal Medicine
PROC: 30233N1 Transfusion of Nonautologous Red Blood Cells into Peripheral Vein, Percutaneous Approach (ICD-10-PCS; 2020-10-14)
PROC: 5A1945Z Respiratory Ventilation, 24-96 Consecutive Hours (ICD-10-PCS; principal; 2020-10-15)
PROC: 0BH17EZ Insertion of Endotracheal Airway into Trachea, Via Natural or Artificial Opening (ICD-10-PCS; 2020-10-15)
PROC: 02HV33Z Insertion of Infusion Device into Superior Vena Cava, Percutaneous Approach (ICD-10-PCS; 2020-10-15)
PROC: B548ZZA Ultrasonography of Superior Vena Cava, Guidance (ICD-10-PCS; 2020-10-15)
DX: I11.0 Hypertensive heart disease with heart failure (principal); I21.4 Non-ST elevation (NSTEMI) myocardial infarction; J96.01 Acute respiratory failure with hypoxia; J96.02 Acute respiratory failure with hypercapnia; N17.9 Acute kidney failure, unspecified; E11.9 Type 2 diabetes mellitus without complications; I50.23 Acute on chronic systolic (congestive) heart failure; F31.9 Bipolar disorder, unspecified; F41.9 Anxiety disorder, unspecified; I27.20 Pulmonary hypertension, unspecified; J44.9 Chronic obstructive pulmonary disease, unspecified; Z79.84 Long term (current) use of oral hypoglycemic drugs; I25.10 Atherosclerotic heart disease of native coronary artery without angina pectoris; E78.5 Hyperlipidemia, unspecified; K26.4 Chronic or unspecified duodenal ulcer with hemorrhage; D50.9 Iron deficiency anemia, unspecified; Z21 Asymptomatic human immunodeficiency virus [HIV] infection status; E66.9 Obesity, unspecified; Z68.31 Body mass index [BMI] 31.0-31.9, adult
CPT/HCPCS: 31500; 36415; 36430; 36511; 36600; 71045-TC-FY; 80053; 82272; 82550; 82553; 82803; 82962; 83735; 83880; 84100; 84484; 85025; 85610; 85730; 86850; 86900; 86901; 86922; 93005; 93010; 93306-TC; 94002; 94640; 99285-25; C9803; J0131; J1250; J1756; P9038; P9058; U0003; U0005

== ENCOUNTER 2021-01-11 00:33 | Inpatient (IN) | payer OTHER ==
[2021-01-11] MEDS: NOREPINEPHRINE D5W PREMIX 16,000 MCG/500 ML BAG IVPB SCH (01:01)
[2021-01-11 01:35] LABS: HEMATOCRIT 35.2 % (32.4-45.2); HEMOGLOBIN 10.1 GM/dL (10.7-15.3); MCH 24.5 pg (25.7-33.7); MCHC 28.8 g/dl (32.0-36.0); MEAN CELL VOLUME 85.3 fl (80-96); PLATELET COUNT 146 10^3/uL (134-434); RBC 4.12 M/mm3 (3.60-5.2); RDW 16.4 % (11.6-15.6)
[2021-01-11 01:42] LABS: INR 1.02 (0.83-1.09); PROTHROMBIN TIME (PATIENT) 11.9 SEC (9.7-13.0)
[2021-01-11 01:44] LABS: ACTIVATED PTT 33.2 SECONDS (25.2-36.5)
[2021-01-11 01:57] LABS: CHLORIDE 106 mmol/L (98-107); SODIUM 140 mmol/L (136-145)
[2021-01-11 01:59] LABS: ALBUMIN 2.2 g/dl (3.4-5.0); CALCIUM 12.3 mg/dL (8.5-10.1)
[2021-01-11] MEDS ORDERED: DEXTROSE 50%-WATER - 25 GM/50 ML VIAL IVPUSH ONE ×2 (01:59→07:51)
[2021-01-11] MEDS ORDERED: INSULIN REGULAR HUMAN 100 UNITS/ML *VIAL IVPUSH ONE ×2 (01:59→07:51)
[2021-01-11 02:00] LABS: ANION GAP 18 MMOL/L (8-16); CO2 16 mmol/L (21-32)
[2021-01-11] MEDS: PROPOFOL 1,000,000 MCG/100 ML VIAL IVPB SCH (02:00)
[2021-01-11 02:02] LABS: SGPT/ALT 24 U/L (13-61)
[2021-01-11 02:03] LABS: CREATININE 1.6 mg/dL (0.55-1.3); SGOT/AST 41 U/L (15-37)
[2021-01-11 02:04] LABS: BILIRUBIN,TOTAL 0.1 mg/dL (0.2-1); TOT PROT 5.8 g/dl (6.4-8.2)
[2021-01-11 02:05] LABS: ALK PHOS 104 U/L (45-117)
[2021-01-11 02:11] LABS: GLUCOSE,RANDOM 401 mg/dL (74-106); LACTIC ACID > 15.0 mmol/L (0.4-2.0)
[2021-01-11 02:14] LABS: ANISOCYTOSIS 2+; MACROCYTOSIS 1+; OVALOCYTE 1+; PLATELET ESTIMATE DECREASED; ROULEAU 2+
[2021-01-11] MEDS ORDERED: DEXTROSE 50%-WATER 25 GM/50 ML DISP.SYRIN ONE ×2 (02:17→07:59)
[2021-01-11] MEDS ORDERED: PROPOFOL 1,000,000 MCG/100 ML VIAL ONE (02:26)
[2021-01-11] MEDS: VASOPRESSIN 40 UNITS/100 ML BAG IV SCH ×2 (02:38→09:11)
[2021-01-11 03:35] VITALS: BMI 34.9
[2021-01-11 06:18] LABS: ARTERIAL BLD GAS O2 SATURATION 98.7 % (95-98); ARTERIAL BLOOD GAS BASE EXCESS -8.4 mmol/L (-2-2); ARTERIAL BLOOD GAS PO2 155.6 mmHg (80-100); ARTERIAL BLOOD GAS pH 7.256 (7.350-7.450)
[2021-01-11 06:33] LABS: ALLENS TEST POSITIVE; VENT MODE A/C; VENT RATE 24
[2021-01-11 07:05] LABS: CHLORIDE 108 mmol/L (98-107); SODIUM 139 mmol/L (136-145)
[2021-01-11 07:07] LABS: BLOOD UREA NITROGEN 18.4 mg/dL (7-18); CO2 26 mmol/L (21-32)
[2021-01-11 07:08] LABS: GLUCOSE,RANDOM 228 mg/dL (74-106)
[2021-01-11 07:10] LABS: SGOT/AST 332 U/L (15-37); SGPT/ALT 72 U/L (13-61)
[2021-01-11 07:11] LABS: CREATININE 1.7 mg/dL (0.55-1.3); PHOSPHOROUS 8.7 mg/dL (2.5-4.9)
[2021-01-11 07:12] LABS: BILIRUBIN,TOTAL 0.2 mg/dL (0.2-1); TOT PROT 7.1 g/dl (6.4-8.2)
[2021-01-11 07:16] LABS: LACTIC ACID 2.7 mmol/L (0.4-2.0)
[2021-01-11 07:30] LABS: ALBUMIN 3.1 g/dl (3.4-5.0); ALK PHOS 160 U/L (45-117); ANION GAP 5 MMOL/L (8-16)
[2021-01-11] MEDS ORDERED: CALCIUM GLUCONATE 10% - 1,000 MG/10 ML VIAL IVPB ONE (07:50)
[2021-01-11] MEDS ORDERED: INSULIN REGULAR HUMAN 100 UNITS/ML *VIAL ONE (07:59)
[2021-01-11] MEDS ORDERED: CALCIUM GLUCONATE 10% - 1,000 MG/10 ML VIAL ONE (07:59)
[2021-01-11] MEDS ORDERED: SODIUM ZIRCONIUM CYCLOSILICATE (LOKELMA) 5 GM PACKET PO ONE (09:00)
[2021-01-11] MEDS ORDERED: SODIUM CHLORIDE 0.45% 1,000 ML IV SCH (11:15)
[2021-01-11 12:42] LABS: CHLORIDE 111 mmol/L (98-107); SODIUM 140 mmol/L (136-145)
[2021-01-11 12:44] LABS: ANION GAP 7 MMOL/L (8-16); CALCIUM 9.9 mg/dL (8.5-10.1); CO2 21 mmol/L (21-32); GLUCOSE,RANDOM 198 mg/dL (74-106)
[2021-01-11 12:45] LABS: BLOOD UREA NITROGEN 20.7 mg/dL (7-18)
[2021-01-11 12:48] LABS: CREATININE 2.2 mg/dL (0.55-1.3)
[2021-01-11] MEDS ORDERED: VANCOMYCIN 1 GRAM (PRE-DOCKED) 1,000 MG/250 ML BAG IVPB ONE (13:35)
[2021-01-11] MEDS: MUPIROCIN 2% TOPICAL OINTMENT FOR DECOLONIZATION NS SCH ×2 (14:36→21:13)
[2021-01-11] MEDS ORDERED: PIPERACILLIN/TAZOBACTAM 3.375 GM VIAL IVPB ONE ×2 (14:42→16:52)
[2021-01-11] MEDS ORDERED: DEXTROSE 5%-WATER - 50 ML IVPB ONE ×2 (14:42→16:52)
[2021-01-11] MEDS: PANTOPRAZOLE SODIUM 40 MG VIAL IVPUSH SCH (14:57)
[2021-01-11] MEDS: PIPERACILLIN/TAZOB 3.375 GM 3.375 GM in DEXTROSE 5%-WATER - 50 ML IVPB SCH ×2 (14:58→18:00)
[2021-01-11] MEDS: HYDROCORTISONE SOD SUCCINATE 100 MG/2 ML VIAL IVPB SCH ×2 (15:00→21:12)
[2021-01-11] MEDS: HEPARIN NA (PORCINE) 5,000 UNITS/ML 1ML VIAL SQ SCH (21:12)
[2021-01-11] MEDS ORDERED: CHLORHEXIDINE GLUCONATE 4% CLEANSER FOR DECOLONIZATION TP SCH (22:00)
[2021-01-12] MEDS ORDERED: DEXTROSE 5%-WATER - 50 ML IVPB ONE ×2 (00:56→10:59)
[2021-01-12] MEDS ORDERED: PIPERACILLIN/TAZOBACTAM 3.375 GM VIAL IVPB ONE ×2 (00:56→10:58)
[2021-01-12] MEDS: PIPERACILLIN/TAZOB 3.375 GM 3.375 GM in DEXTROSE 5%-WATER - 50 ML IVPB SCH (01:11)
[2021-01-12] MEDS: HYDROCORTISONE SOD SUCCINATE 100 MG/2 ML VIAL IVPB SCH ×2 (03:09→10:52)
[2021-01-12] MEDS: NOREPINEPHRINE D5W PREMIX 16,000 MCG/500 ML BAG IVPB SCH (03:13)
[2021-01-12] MEDS: VASOPRESSIN 40 UNITS/100 ML BAG IV SCH ×2 (03:14→07:38)
[2021-01-12] MEDS: PROPOFOL 1,000,000 MCG/100 ML VIAL IVPB SCH (03:14)
[2021-01-12 06:05] LABS: ARTERIAL BLD GAS O2 SATURATION 95.5 % (95-98); ARTERIAL BLOOD GAS BASE EXCESS -10.1 mmol/L (-2-2); ARTERIAL BLOOD GAS PO2 87.7 mmHg (80-100); ARTERIAL BLOOD GAS pH 7.263 (7.350-7.450)
[2021-01-12 06:24] LABS: ALLENS TEST POSITIVE; VENT MODE A/C; VENT RATE 24
[2021-01-12] MEDS: HEPARIN NA (PORCINE) 5,000 UNITS/ML 1ML VIAL SQ SCH ×2 (07:24→10:50)
[2021-01-12 07:30] LABS: BASO % 0.1 % (0-2.0); HEMATOCRIT 39.1 % (32.4-45.2); HEMOGLOBIN 12.1 GM/dL (10.7-15.3); LYMPH % 7.8 % (8-40); MCH 24.1 pg (25.7-33.7); MEAN CELL VOLUME 77.9 fl (80-96); MEAN PLT VOLUME 9.3 fl (7.5-11.1); MONO % 6.7 % (3.8-10.2); NEUT % 85.4 % (42.8-82.8); PLATELET COUNT 231 10^3/uL (134-434); RBC 5.03 M/mm3 (3.60-5.2); RDW 16.3 % (11.6-15.6)
[2021-01-12 07:50] LABS: CHLORIDE 106 mmol/L (98-107); SODIUM 135 mmol/L (136-145)
[2021-01-12] MEDS ORDERED: OCULAR LUBRICANT OPHTHALMIC OINTMENT 7 GM TUBE OU PRN (08:00)
[2021-01-12 08:20] LABS: BLOOD UREA NITROGEN 31.3 mg/dL (7-18); CO2 17 mmol/L (21-32); GLUCOSE,RANDOM 151 mg/dL (74-106); MAGNESIUM 1.9 mg/dL (1.8-2.4)
[2021-01-12 08:22] LABS: CREATININE 3.5 mg/dL (0.55-1.3); SGOT/AST 299 U/L (15-37); SGPT/ALT 122 U/L (13-61)
[2021-01-12 08:23] LABS: PHOSPHOROUS 4.5 mg/dL (2.5-4.9)
[2021-01-12 08:24] LABS: BILIRUBIN,TOTAL 0.4 mg/dL (0.2-1); TOT PROT 5.9 g/dl (6.4-8.2)
[2021-01-12 08:43] LABS: ALBUMIN 2.2 g/dl (3.4-5.0); ALK PHOS 94 U/L (45-117); ANION GAP 13 MMOL/L (8-16); CALCIUM 7.9 mg/dL (8.5-10.1)
[2021-01-12] MEDS ORDERED: SODIUM CHLORIDE 0.45% 1,000 ML with SODIUM BICARBONATE 8.4% - 50 MEQ IV SCH (09:01)
[2021-01-12] MEDS ORDERED: SODIUM BICARBONATE 8.4% - 50 MEQ in SODIUM CHLORIDE 0.45% 1,000 ML IV SCH (09:03)
[2021-01-12] MEDS ORDERED: INSULIN REGULAR HUMAN 100 UNITS/ML *VIAL IVPUSH ONE (09:04)
[2021-01-12] MEDS ORDERED: CALCIUM GLUCONATE 10% - 1,000 MG/10 ML VIAL IVPUSH ONE (09:04)
[2021-01-12] MEDS ORDERED: DEXTROSE 50%-WATER - 25 GM/50 ML VIAL IVPUSH ONE (09:05)
[2021-01-12] MEDS ORDERED: SODIUM ZIRCONIUM CYCLOSILICATE (LOKELMA) 5 GM PACKET PO SCH (10:00)
[2021-01-12] MEDS ORDERED: DEXTROSE 50%-WATER 25 GM/50 ML DISP.SYRIN ONE (10:31)
[2021-01-12 10:50] LABS: ANISOCYTOSIS 0; MACROCYTOSIS 0; PLATELET ESTIMATE NORMAL
[2021-01-12] MEDS: PANTOPRAZOLE SODIUM 40 MG VIAL IVPUSH SCH (10:50)
[2021-01-12] MEDS ORDERED: SODIUM BICARBONATE 8.4% 50 MEQ/50 ML VIAL ONE (10:58)
[2021-01-12] MEDS ORDERED: PT OWN MED DRAWER 7, Y5N ONE ×3 (10:59→12:27)
[2021-01-12] MEDS: MUPIROCIN 2% TOPICAL OINTMENT FOR DECOLONIZATION NS SCH (11:06)
[2021-01-12] MEDS ORDERED: HEPARIN NA (PORCINE) 5,000 UNITS/ML 1ML VIAL IVPUSH PRN ×2 (11:16)
[2021-01-12] MEDS ORDERED: HEPARIN INFUSION - 25,000 UNITS/500 ML INFUS.BAG IVPB SCH (11:30)
[2021-01-12] MEDS ORDERED: PIPERACILLIN/TAZOB 2.25 GM 2.25 GM in DEXTROSE 5%-WATER - 50 ML IVPB SCH (15:00)
[2021-01-12 15:57] VITALS: BP 136/72; PULSE 110; TEMP 97.2
[2021-01-12] MEDS ORDERED: morphine SULFATE 4 MG/ML VIAL IVPUSH ONE (16:22)
[2021-01-12] MEDS ORDERED: MORPHINE SULFATE/0.9% NACL/PF 100 MG/100 ML BAG IVPB SCH ×2 (16:30)
[2021-01-13] MEDS ORDERED: PIPERACILLIN/TAZOB 2.25 GM 2.25 GM in DEXTROSE 5%-WATER - 50 ML IVPB SCH (15:00)
== END 2021-01-12 21:00 | disposition expired | DRG 133 ==
LOC: JER 00:33 → JERBED 02:14 → JICU 03:08
PROVIDERS: ADMIT Internal Medicine Pulmonary Disease; ATTEND Internal Medicine Pulmonary Disease
PROC: 5A1945Z Respiratory Ventilation, 24-96 Consecutive Hours (ICD-10-PCS; principal; 2021-01-11)
PROC: 0BH17EZ Insertion of Endotracheal Airway into Trachea, Via Natural or Artificial Opening (ICD-10-PCS; 2021-01-11)
PROC: 5A12012 Performance of Cardiac Output, Single, Manual (ICD-10-PCS; 2021-01-11)
PROC: 05HN33Z Insertion of Infusion Device into Left Internal Jugular Vein, Percutaneous Approach (ICD-10-PCS; 2021-01-11)
PROC: B544ZZA Ultrasonography of Left Jugular Veins, Guidance (ICD-10-PCS; 2021-01-11)
DX: J96.01 Acute respiratory failure with hypoxia (principal); I46.9 Cardiac arrest, cause unspecified; G93.6 Cerebral edema; N17.0 Acute kidney failure with tubular necrosis; G93.1 Anoxic brain damage, not elsewhere classified; R57.9 Shock, unspecified; E87.2 Acidosis; E87.5 Hyperkalemia; J98.11 Atelectasis; Z21 Asymptomatic human immunodeficiency virus [HIV] infection status; F31.9 Bipolar disorder, unspecified; I25.10 Atherosclerotic heart disease of native coronary artery without angina pectoris; Z95.1 Presence of aortocoronary bypass graft; E78.5 Hyperlipidemia, unspecified; E11.65 Type 2 diabetes mellitus with hyperglycemia; J44.9 Chronic obstructive pulmonary disease, unspecified; K52.9 Noninfective gastroenteritis and colitis, unspecified; K80.20 Calculus of gallbladder without cholecystitis without obstruction; I11.0 Hypertensive heart disease with heart failure; I50.40 Unspecified combined systolic (congestive) and diastolic (congestive) heart failure; E66.9 Obesity, unspecified; Z68.34 Body mass index [BMI] 34.0-34.9, adult; E83.41 Hypermagnesemia; K21.9 Gastro-esophageal reflux disease without esophagitis; I95.9 Hypotension, unspecified; D72.829 Elevated white blood cell count, unspecified
CPT/HCPCS: 36415; 36600; 70450-TC; 71045-TC-FY; 71250-TC; 74176-TC; 80048; 80053; 80164; 82550; 82553; 82803; 82962; 83605; 83735; 83880; 83993; 84100; 84484; 85025; 85610; 85730; 87040; 87045; 87046; 87324; 87449; 93005; 93010; 93306-TC; 93970-TC; 94002; 99291; C9803; J1644; J3490; Q9967; U0003; U0005